=== PATIENT | female | born 1955 | race Caucasian/White ===

== ENCOUNTER 2016-03-05 05:40 | Outpatient (CLI) | payer OTHER ==
[~2016-03-05] VITALS: Ht 170.2 cm; Wt 81.9 kg
[~2016-03-05 05:40] MED LIST: ACHD5005 PO; ALBU8.5H2 IH; ALLO100T PO; BACL10TA PO; BUDE6HFA IH; CYAN100053 IJ; D50KC PO; EPIN0.3P3 IM; FAMO20TA5 PO; FERR240T9 PO; HYDR1TAB86 PO; LEVO125T6 PO; LEVO1CAP3 PO; LEVO5TAB12 PO; LISI1TAB PO; LISI1TAB10 PO; MAGN400T6 PO; MELO-198 PO; MELO7.5T46 PO; MONT10TA24 PO; MTF500T PO; NF-ESOM40C PO; POTA10CA43 PO; PRD20T PO; ROPI0.256 PO; SITA100T PO; TRAM50TA2 PO
--- OUTSIDE RECORDS SUMMARY | 2016-03-05 05:44 | XMS REPORT | Continuity of Care Document ---
Author Author [facility] Organization [facility] Address Unknown Phone Unavailable Care Team Providers Care Hvac Project Manager Name Role Phone UBALDO WALLS DO PCP Insurance Providers Payer Name Policy Number Subscriber Name Relationship [id number] Kalpana Saldaña E 01 Advance Directives Directive Response Recorded Date/Time Advance Directives No 07/22/15 5:13am Problems Active Problems Medical Problem Onset Date Status Angioedema of lips Unknown Acute Angioedema of lips Unknown Acute Left arm pain Unknown Acute Paresthesia Unknown Acute Renal insufficiency Unknown Acute Syncope Unknown Acute Medications Current Home Medications Medication Dose Units Route Directions Days/Qty Instructions Start Date Levothyroxine Sodium (Levothroid) 125 Mcg 125 Mcg Oral Daily Budesonide/Formoterol Fumarate 10.2 Gm 2 Puff Inhalation Twice A Day 05/27/13 Albuterol 8.5 Gm 2 Puff Inhalation Every 4HRS as needed for Shortness Of Breath NEEDED FOR SHORTNESS OF BREATH 05/27/13 Levocetirizine Dihydrochloride 5 Mg 5 Mg Oral Daily 05/28/13 Ergocalciferol 50,000 Units 50,000 Units Oral Weekly takes on 05/28/13 Cyanocobalamin (Vitamin B 12 Injecting) 1,000 Mcg/Ml 1,000 Mcg Injection Monthly 05/28/13 Allopurinol 100 Mg 100 Mg Oral Bedtime 05/28/13 Hctz/Lisinopril (Zestoretic) 1 Tab 1 Tab Oral Bedtime 20-25MG TABLET 05/28/13 Sitagliptin Phosphate 100 Mg 100 Mg Oral Bedtime 01/18/14 Metformin Hcl (Glucophage) 500 Mg 250 Mg Oral Twice A Day With Meals 01/18/14 Esomeprazole Magnesium 40 Mg 40 Mg Oral Bedtime 01/18/14 Potassium Chloride (Micro K) 10 Meq 10 Meq Oral Bedtime 01/18/14 Ferrous Gluconate 1 Tab 1 Tab Oral Bedtime 01/18/14 Magnesium Oxide 400 Mg 400 Mg Oral Bedtime 01/18/14 Levomefolate/B6/B12/Algal Oil 1 Each 1 Each Oral Bedtime 01/18/14 Ropinirole Hcl 0.25 Mg 0.5 Mg Oral Bedtime TAKE 2 (.25MG) TABS Epinephrine 0.3 Mg/0.3 Ml 0.3 Mg Intramusc As Directed as needed for Shortness Of Breath 2 02/01/14 Montelukast Sodium 10 Mg 90 07/22/15 Meloxicam 7.5 Mg 90 07/22/15 Past Home Medications Medication Directions Ordered Status Meloxicam (Mobic) 7.5 Mg Tablet, 7.5 Mg Oral Daily 05/27/13 Discontinued Hctz/Lisinopril (Zestoretic) 1 Each Tablet, 1 Tab Oral Bedtime 05/27/13 Discontinued Acetaminophen/Hydrocodone Bitart (Lortab) 1 Each Tablet, 1-2 Each Oral Every 4HRS as needed for Pain 05/28/13 Discontinued Meloxicam (Mobic) 7.5 Mg Tablet, 7.5 Mg Oral Daily 01/18/14 Discontinued Acetaminophen/Hydrocodone Bitart (Hydrocodone/Apap 5/325MG) 1 Tab Tab, 1-2 Tab Oral Every 4HRS as needed for Moderate To Severe Pain 02/01/14 Discontinued Baclofen (Lioresal) 10 Mg Tablet, 10 Mg Oral Three Times A Day And Prn as needed for Spasms 02/01/14 Discontinued Prednisone 20 Mg Tab, 40 Mg Oral Daily 02/01/14 Discontinued Famotidine (Pepcid) 20 Mg Tablet, 1 Each Oral Twice A Day 02/01/14 Discontinued Tramadol Hcl 50 Mg Tablet, 50 Mg Oral Every 4HRS as needed for Pain 02/01/14 Discontinued Social History Social History Problem Response Recorded Date/Time Alcohol Use Occasionally Uses 07/22/2015 5:13am Recreational Drug Use No 07/22/2015 5:13am Recent Foreign Travel No 07/20/2015 7:48am Sexually Transmitted Disease No 07/22/2015 5:13am HIV/AIDS No 07/22/2015 5:13am Sexually Transmitted Disease No 07/22/2015 5:13am Hospital Discharge Instructions No hospital discharge instructions. Plan of Care Prescriptions See Medication Section Functional Status No functional status results. Allergies, Adverse Reactions, Alerts Allergen Type Severity Reaction Status Last Updated Codeine Allergy Unknown Active 11/27/14 Meperidine Allergy Unknown Active 05/27/13 Immunizations No immunization records. Vital Signs No known vital signs results. Results No known relevant diagnostic tests, laboratory data and/or discharge summary. Procedures No known history of procedures. Encounters Encounter Location Arrival/Admit Date Discharge/Depart Date Attending Provider Discharged Recurring [facility] 08/25/15 8:00am 9:33am KAREN WALLS
[2016-03-05] MEDS ORDERED: LOVA20TA2 PO (13:16)
[2016-03-05] MEDS ORDERED: FLUT1DIS26 IH (13:16)
[2016-03-05] MEDS ORDERED: CALC1TAB4 PO (13:16)
== END 2016-03-05 13:17 ==
LOC: PREOP 05:40
PROVIDERS: ATTEND Surgery
DX: Z01.818 Encounter for other preprocedural examination (principal); K21.9 Gastro-esophageal reflux disease without esophagitis

== ENCOUNTER 2016-03-07 07:21 | Day surgery (SDC) | payer OTHER ==
[~2016-03-07] VITALS: Ht 170.2 cm; Wt 81.9 kg
[~2016-03-07 07:21] MED LIST changes: +CALC1TAB4 PO; +FLUT1DIS26 IH; +LOVA20TA2 PO
--- OUTSIDE RECORDS SUMMARY | 2016-03-07 07:25 | XMS REPORT | Continuity of Care Document ---
Author Author [facility] Organization [facility] Address Unknown Phone Unavailable Care Team Providers Care Pediatric Physical Therapy Assistant Name Role Phone UBALDO WALLS DO PCP Insurance Providers Payer Name Policy Number Subscriber Name Relationship [id number] Kalpana Saldaña E 01 Advance Directives Directive [...] Discharge/Depart Date Attending Provider Discharged Recurring [facility] 08/25/15 8:00am 9:33am KAREN WALLS
--- OUTSIDE RECORDS SUMMARY | 2016-03-07 07:26 | XMS REPORT | Continuity of Care Document ---
Author Author [facility] Organization [facility] Address Unknown Phone Unavailable Care Team Providers Care Export Specialist Name Role Phone UBALDO WALLS DO PCP Insurance Providers Payer Name Policy Number Subscriber Name Relationship [id number] Kalpana Saldaña E 01 Advance Directives Directive [...] Discharge/Depart Date Attending Provider Discharged Recurring [facility] 08/25/15 8:00am 9:33am KAREN WALLS
[2016-03-07] MEDS ORDERED: FLUMAZENIL (ROMAZICON) 0.1 MG/ML 5 ML VIAL INJ PRN (07:30)
[2016-03-07] MEDS ORDERED: NS IV 500 ML 500 ML IV PRN (07:30)
[2016-03-07] MEDS ORDERED: HURRICAINE EXT TUBE (BENZOCAINE) XX PRN (07:30)
[2016-03-07] MEDS ORDERED: NALOXONE 0.4 MG/ML 1 ML (NARCAN) VIAL IVP PRN (07:30)
[2016-03-07] MEDS ORDERED: LIDOCAINE JELLY 2% (XYLOCAINE) 5 ML TUBE MM PRN (07:30)
[2016-03-07] MEDS ORDERED: NS IV 500 ML 500 ML ONE (07:32)
[2016-03-07 07:45] VITALS: BP 121/63
[2016-03-07] MEDS ORDERED: fentaNYL INJECTION 100 MCG/2 ML AMP ONE (07:54)
[2016-03-07] MEDS ORDERED: MIDAZOLAM 2 MG/2 ML (VERSED) VIAL ONE ×3 (07:54→07:55)
[2016-03-07] MEDS ORDERED: HURRICAINE EXT TUBE (BENZOCAINE) ONE (07:55)
--- NOTE | 2016-03-07 08:22 | Pre-Op Note & Conscious Sedat ---
Pre-Operative Progress Note H&P Reviewed The H&P was reviewed, patient examined and no changes noted. Date H&P Reviewed: Mar 07, 2016 Time H&P Reviewed: 08:21 Pre-Op Diagnosis: GERD Conscious Sedation Pre-Proced ASA Class: 2 Airway Mallampati Classification: ([place] appropriate class) I. II. III, IV Lungs Heart ASA score ASA 1: a normal healthy patient ASA 2: a patient with a mild systemic disease (mid diabetes, controlled hypertension, obesity ASA 3: a patient with a severe systemic disease that limits activity (angina , COPD, prior Myocardial infarction) ASA 4: a patient with an incapacitating disease that is a constant threat to life (CHF, renal failure) ASA 5: a moribund patient not expected to survive 24 hrs. (ruptured aneurysm) ASA 6: a declared brain patient whose organs are being harvested. For emergent operations, add the letter E after the classification Grade 2 Sedation Plan: Discussed options with patient/fam Note The patient is an appropriate candidate to undergo the planned procedure, sedation, and anesthesia. The patient immediately re-assessed prior to indication. LUCAS ESTES MD Mar 07, 2016 8:22 am
[2016-03-07] MEDS: fentaNYL INJECTION 100 MCG/2 ML AMP IVP PRN ×2 (08:27→08:29)
[2016-03-07] MEDS: MIDAZOLAM 2 MG/2 ML (VERSED) VIAL IVP PRN ×2 (08:28→08:30)
[2016-03-07 09:05] VITALS: BP 117/52
--- NOTE | 2016-03-07 09:07 | Progress Note-Post Operative ---
Post-Operative Progess Note Pre-Operative Diagnosis GERD Post-Operative Diagnosis tortuous esophagus with a large paraesophageal hernia. Stomach and duodenum normal Post-Op Procedure Note Date of Procedure: Mar 07, 2016 Name of Procedure: EGD with antral biopsy Anesthesia Type sedation Specimen(s) collected antral mucosa LUCAS ESTES MD Mar 07, 2016 9:07 am
--- NOTE | 2016-03-07 09:10 | Discharge Inst-Simple/Standard ---
Discharge Inst-Standard Discharge Medications New, Converted or Re-Newed RX: Other Patient Instructions/Follow Up Plan of Care/Instructions/FU: please schedule CT of the chest and abdomen with IV and oral contrast as an outpatient Activity as Tolerated: Yes Discharge Diet: No Restrictions, ADA Diet LUCAS ESTES MD Mar 07, 2016 9:10 am
[2016-03-07 09:35] VITALS: BP 111/66
[2016-03-07 10:00] VITALS: BP 111/66
--- NOTE | 2016-03-08 07:51 | PROCEDURE REPORT ---
PROCEDURE PHYSICIAN: LUCAS ESTES DATE OF PROCEDURE: 03/07/2016 PROCEDURE: Upper GI endoscopy with antral biopsy. SURGEON: Ezekiel. INDICATION FOR THE PROCEDURE: This lady came in for endoscopic assessment of symptoms of severe reflux disease. She reports ongoing symptoms with early aspiration despite proton pump inhibitor therapy. Informed consent was obtained after reviewing the procedure in detail. DESCRIPTION OF PROCEDURE: She was placed in the left lateral decubitus position and her vital signs were monitored. Conscious sedation was achieved using Versed and fentanyl. Her oropharynx was anesthetized with Cetacaine and the flexible gastroscope introduced down the esophagus, past the stomach, into the proximal duodenum. FINDINGS: ESOPHAGUS: Quite tortuous with a large hiatal hernia, having the appearance of a para-esophageal type of hernia. There was minimal esophagitis. STOMACH AND DUODENUM: Stomach and duodenum were normal. An antral biopsy was obtained for Helicobacter status. She tolerated the procedure well and was taken back to the nursing area in a stable condition. IMPRESSION: Persistent symptoms of reflux. Possible paraesophageal hernia requiring surgical correction. Would obtain esophageal manometry and a CT scan for further evaluation. Job ID: [id number] Dictated Date: 03/07/2016 08:47:05 Lease Picker Date: 03/08/2016 07:46:21 / dwight
== END 2016-03-07 10:00 | disposition home or self-care (01) ==
LOC: ENDO 07:21
PROVIDERS: ATTEND Surgery
DX: K21.9 Gastro-esophageal reflux disease without esophagitis (principal); K44.9 Diaphragmatic hernia without obstruction or gangrene; K20.9 Esophagitis, unspecified; E11.9 Type 2 diabetes mellitus without complications; Z79.84 Long term (current) use of oral hypoglycemic drugs
CPT/HCPCS: 82962

== ENCOUNTER → 2016-03-08 | Outpatient (CLI) | payer OTHER ==
[~2016-03-08] MED LIST changes: +BARIUM SUSPENSION 2.1% (VANILLA SILQ) 450 ML PO ONE; +CATHETER FLUSH 10 ML SYR IV PRN; +IOHEXOL 350 MG/ML 100 ML (OMNIPAQUE 350) VIAL IV ONE; +NS 100 ML (IVPB) BAG IV ONE
--- OUTSIDE RECORDS SUMMARY | 2016-03-08 07:22 | XMS REPORT | Continuity of Care Document ---
Author Author [facility] Organization [facility] Address Unknown Phone Unavailable Care Team Providers Care Hydrography Teacher Name Role Phone UBALDO WALLS DO PCP Insurance Providers Payer Name Policy Number Subscriber Name Relationship [id number] Kalpana Saldaña E 01 Advance Directives Directive [...] Discharge/Depart Date Attending Provider Discharged Recurring [facility] 08/25/15 8:00am 9:33am KAREN WALLS
[2016-03-08 07:51] LABS: CREATININE SERUM 1.16 MG/DL (0.60-1.30)
--- NOTE | 2016-03-08 10:07 | Diagnostic Imaging Report ---
PROCEDURE: CT chest and abdomen with contrast. TECHNIQUE: Multiple contiguous axial images were obtained through the chest and abdomen after the administration of intravenous contrast. INDICATION: Paraesophageal hernia. COMPARISON: The previous CT chest exam of 11/27/2014 suggested a large hiatal hernia. FINDINGS: On the coronal images of this exam however, it appears that there is a paraesophageal hernia. As on the previous study, much of the stomach lies above the diaphragm. The lungs are generally clear. A few thin strands of atelectasis/fibrosis have developed in the left lower lobe since the prior study. The calcified granuloma in the left lung base seen previously is again evident and no different. The heart size is within normal limits. The aorta is not abnormally dilated and there is no sign of a dissection. There is no defect within the pulmonary arteries to indicate a pulmonary embolus. There is no mediastinal or hilar adenopathy. The thyroid gland was not well visualized. There is no obvious breast mass. The images through the abdomen show that the liver is of lower density than usually seen. This does suggest fatty metamorphosis. This finding is similar to the prior exam. The spleen, pancreas, adrenals, aorta and inferior vena cava are unremarkable for an acute abnormality. As noted on the prior study, the gallbladder is surgically absent. The bone windows show no sign of a fracture or for destructive lesion. IMPRESSION: 1. The large paraesophageal hernia seen on the previous study is again evident and does not appear to have changed significantly. Much of the stomach does lie above the diaphragm. 2. There is no acute abnormality of the chest or abdomen. A few thin strands of atelectasis/fibrosis have developed in the left lung base since the prior study. These results were discussed with Dr. Falcon. Dictated by: Dictated on workstation # [id number]
== END ==
LOC: RAD 07:17
PROVIDERS: ATTEND Surgery
DX: K44.9 Diaphragmatic hernia without obstruction or gangrene (principal)
CPT/HCPCS: 36415; 71260; 74160; 82565; 84520

== ENCOUNTER → 2017-03-01 | Outpatient (CLI) | payer OTHER ==
[~2017-03-01] MED LIST changes: -BARIUM SUSPENSION 2.1% (VANILLA SILQ) 450 ML PO ONE; -CATHETER FLUSH 10 ML SYR IV PRN; -IOHEXOL 350 MG/ML 100 ML (OMNIPAQUE 350) VIAL IV ONE; -NS 100 ML (IVPB) BAG IV ONE
--- NOTE | 2017-03-01 09:48 | Diagnostic Imaging Report ---
PROCEDURE: MRI lumbar spine. TECHNIQUE: Multiplanar, multisequence MRI of the lumbar spine was performed without contrast. INDICATION: Low back pain. History of prior laminectomy. COMPARISON: 01/13/2015 FINDINGS: There is moderate levoscoliosis of the lumbar spine similar to the prior study. BONE MARROW: Unremarkable CONUS MEDULLARIS: The conus is at about L1 and appears unremarkable. L5-S1: There is degenerative disc space narrowing and loss of signal. There is moderate facet arthropathy. There are small lateral disc protrusions bilaterally resulting in very minimal foraminal narrowing slightly more prominent on the left, similar to the prior study. L4-5: There is mild disc space narrowing and loss of signal. There is broad-based posterior disc protrusion more pronounced on the left where there is an associated small annular tear. There is moderate facet arthropathy. Findings result in some encroachment of the left lateral recess and mild bilateral foraminal narrowing, left more so than right. The overall appearance appears fairly similar to the prior exam. L3-4: There is severe facet arthropathy with minimal grade I degenerative anterolisthesis of L3 on L4. There is degenerative disc disease with disc space narrowing and loss of signal and broad-based posterior disc protrusion. Findings result in some central narrowing as well as moderate left foraminal narrowing, fairly similar to the prior exam. L2-3: There is degenerative disc disease with disc space narrowing and loss of signal and minimal broad-based posterior disc protrusion with central annular tear. There is mild facet arthropathy. There is minimal ventral effacement of the thecal sac and minimal foraminal narrowing bilaterally, similar to the prior study. L1-2: Unremarkable ADDITIONAL FINDINGS: None IMPRESSION: Multilevel degenerative disc disease and facet arthropathy with multiple levels of disc protrusion and some mild central and foraminal narrowing. Foraminal stenosis is most severe on the right at L3/L4. Overall, the appearance of the lumbar spine does not appear significantly changed from the prior exam from 2015. Please see above for detailed discussion by level. Dictated by: Dictated on workstation # [id number]
== END ==
LOC: RAD 08:27
PROVIDERS: ATTEND Internal Medicine
DX: M48.07 Spinal stenosis, lumbosacral region (principal); M51.36 Other intervertebral disc degeneration, lumbar region; M51.27 Other intervertebral disc displacement, lumbosacral region; M46.97 Unspecified inflammatory spondylopathy, lumbosacral region; Z98.890 Other specified postprocedural states
CPT/HCPCS: 72148

== ENCOUNTER 2018-03-09 12:11 | Emergency (ER) | payer OTHER ==
[~2018-03-09] VITALS: Ht 170.2 cm; Wt 83.9 kg
[2018-03-09] MEDS ORDERED: ASPIRIN 81 MG CHEW (CHILDREN'S ASA) PO ONE (12:30)
[2018-03-09 12:34] LABS: BASOPHILS % (AUTO) 1 % (0-10); EOSINOPHILS # (AUTO) 0.2 10^3/uL (0.0-0.3); EOSINOPHILS % (AUTO) 3 % (0-10); HEMATOCRIT 38 % (35-52); HEMOGLOBIN 12.9 G/DL (11.5-16.0); LYMPHOCYTES # (AUTO) 1.9 X 10^3 (1.0-4.0); LYMPHOCYTES % (AUTO) 26 % (12-44); MEAN CORPUSCULAR HEMOGLOBIN 30 PG (25-34); MEAN CORPUSCULAR HGB CONC 34 G/DL (32-36); MEAN CORPUSCULAR VOLUME 90 FL (80-99); MONOCYTES # (AUTO) 0.6 X 10^3 (0.0-1.0); MONOCYTES % (AUTO) 8 % (0-12); NEUTROPHILS # (AUTO) 4.7 X 10^3 (1.8-7.8); NEUTROPHILS % (AUTO) 63 % (42-75); PLATELET COUNT 298 10^3/uL (130-400); RED CELL DISTRIBUTION WIDTH 14.1 % (10.0-14.5); WHITE BLOOD COUNT 7.5 10^3/uL (4.3-11.0)
[2018-03-09] MEDS: NITROGLYCERIN 0.4 MG SL TABS BTL 25'S SL PRN ×2 (12:34→13:10)
--- NOTE | 2018-03-09 12:42 | ED Chest Pain ---
General Chief Complaint: Chest Pain Stated Complaint: CHEST PAIN Source: patient Exam Limitations: no limitations History of Present Illness Date Seen by Provider: Mar 09, 2018 Time Seen by Provider: 12:12 Initial Comments 62-year-old female who presented to the emergency room with chest pain that started around 8:00 this morning while at work. Reports the pain is intermittent substernal chest pain that radiates through to her back into her right shoulder blade. She denies nausea, vomiting, shortness of breath. Reports that she feels like she needs to burp to relieve pressure. Timing/Duration: 4-6 hours Severity/Quality: dull, sharp Location: substernal, central Radiation: shoulders (right shoulder), back ASA po FOREST FIRE MANAGEMENT OFFICER: No NTG SL FOREST FIRE MANAGEMENT OFFICER: No Associated Symptoms: back pain; No fatigue, No headache, No nausea/vomiting, No shortness of breath, No syncope, No weakness Allergies and Home Medications Allergies Coded Allergies: codeine (Verified Allergy, Unknown, 03/07/16) meperidine (Verified Allergy, Unknown, 03/07/16) Home Medications Albuterol 8.5 Gm Hfa.aer.ad, 2 PUFF IH Q4H PRN for SHORTNESS OF BREATH, ( Reported) NEEDED FOR SHORTNESS OF BREATH Allopurinol 100 Mg Tab, 100 MG PO HS, (Reported) Ca/D3/Mag#11/Zinc/Repeater Chief/Deion/Bor 1 Each Tablet, 1 EACH PO DAILY, (Reported) Cyanocobalamin 1,000 Mcg/Ml Vial, 1,000 MCG IJ MONTHLY, (Reported) Ergocalciferol 50,000 Units Cap, 50,000 UNITS PO WEEKLY, (Reported) takes on Esomeprazole Mag Trihydrate 40 Mg Capsule.dr, 40 MG PO HS, (Reported) Ferrous Gluconate 1 Tab Tablet, 1 TAB PO HS, (Reported) Fluticasone/Salmeterol 1 Each Blst.w.dev, 1 EACH IH HS, (Reported) Hctz/Lisinopril 1 Tab Tablet, 1 TAB PO HS, (Reported) 20-25MG TABLET Levocetirizine Dihydrochloride 5 Mg Tablet, 5 MG PO DAILY, (Reported) Levomefolate/B6/B12/Algal Oil 1 Each Capsule, 1 EACH PO HS, (Reported) Levothyroxine Sodium 125 Mcg Tablet, 125 MCG PO DAILY, (Reported) Lovastatin 20 Mg Tablet, 20 MG PO DAILY, (Reported) Magnesium Oxide 400 Mg Tablet, 400 MG PO HS, (Reported) Meloxicam 7.5 Mg Tablet, 7.5 MG PO DAILY, (Reported) Metformin Hcl 500 Mg Tablet, 500 MG PO BID WITH MEALS, (Reported) Montelukast Sodium 10 Mg Tablet, 10 MG PO DAILY, (Reported) Potassium Chloride 10 Meq Capsule.sa, 10 MEQ PO HS, (Reported) Sitagliptin Phosphate 100 Mg Tablet, 100 MG PO HS, (Reported) Past Fbjpqmt-Kfxfgw-Kgyymg Hx Patient Social History Recent Hopitalizations: No Immunizations Up To Date Tetanus Booster (TDap): Unknown Date of Pneumonia Vaccine: Nov 10, 2012 Date of Influenza Vaccine: Dec 01, 2013 Seasonal Allergies Seasonal Allergies: Yes Past Medical History Eye Surgery, Gallbladder, Orthopedic Asthma Currently Using CPAP: No Currently Using BIPAP: No Hypertension Reproductive Disorders: No Female Reproductive Disorders: Denies CATERING 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 Sexually Transmitted Disease: No HIV/AIDS: No Gastroesophageal Reflux, Hiatal Hernia Chronic Back Pain Hyperthyroidism, Diabetes, Non-Insulin dep Loss of Vision: Denies Hearing Impairment: Denies Adverse Reaction/Blood Tranf: No Family Medical History Cancer 03 FATHER, Onset:Unknown (Kidney Cancer) Cataract 03 FATHER, Onset:Unknown Dementia Paternal Grandmother, Onset:Unknown Family history: Asthma 09 SISTER, Onset:Unknown Family history: Cardiovascular disease 03 MOTHER, Onset:Unknown Family history: Diabetes mellitus 03 MOTHER, Onset:Unknown Family history: Gastrointestinal disease 09 SISTER, Onset:Unknown (Celiac disease) Family history: Thyroid disorder 09 SISTER, Onset:Unknown Hearing loss 03 FATHER, Onset:Unknown History of - respiratory disease 03 FATHER, Onset:Unknown (emphysema) Visual impairment 09 SISTER, Onset:Unknown (Macular Degeneration) Heart Disease Physical Exam Vital Signs Capillary Refill : Height, Weight, BMI Height: 5'7.00" Weight: 180lbs. 9.6oz. [id number]; 28.3 BMI Method:Estimated Progress/Results/Core Measures Results/Orders Lab Results Laboratory Tests Test 03/09/18 12:28 03/09/18 15:48 Range/Units White Blood Count 7.5 4.3-11.0 10^3/uL Red Blood Count 4.27 L 4.35-5.85 10^6/uL Hemoglobin 12.9 11.5-16.0 G/DL Hematocrit 38 35-52 % Mean Corpuscular Volume 90 80-99 FL Mean Corpuscular Hemoglobin 30 25-34 PG Mean Corpuscular Hemoglobin Concent 34 32-36 G/DL Red Cell Distribution Width 14.1 10.0-14.5 % Platelet Count 298 130-400 10^3/uL Mean Platelet Volume 11.0 H 7.4-10.4 FL Neutrophils (%) (Auto) 63 42-75 % Lymphocytes (%) (Auto) 26 12-44 % Monocytes (%) (Auto) 8 0-12 % Eosinophils (%) (Auto) 3 0-10 % Basophils (%) (Auto) 1 0-10 % Neutrophils # (Auto) 4.7 1.8-7.8 X 10^3 Lymphocytes # (Auto) 1.9 1.0-4.0 X 10^3 Monocytes # (Auto) 0.6 0.0-1.0 X 10^3 Eosinophils # (Auto) 0.2 0.0-0.3 10^3/uL Basophils # (Auto) 0.0 0.0-0.1 10^3/uL Prothrombin Time 12.3 12.2-14.7 SEC INR Comment 0.9 0.8-1.4 Activated Partial Thromboplast Time 26 24-35 SEC Sodium Level 140 135-145 MMOL/L Potassium Level 3.9 3.6-5.0 MMOL/L Chloride Level 100 98-107 MMOL/L Carbon Dioxide Level 27 21-32 MMOL/L Anion Gap 13 5-14 MMOL/L Blood Urea Nitrogen 14 7-18 MG/DL Creatinine 1.06 0.60-1.30 MG/DL Estimat Glomerular Filtration Rate 52 BUN/Creatinine Ratio 13 Glucose Level 81 70-105 MG/DL Calcium Level 9.5 8.5-10.1 MG/DL Corrected Calcium 9.3 8.5-10.1 MG/DL Magnesium Level 2.1 1.8-2.4 MG/DL Total Bilirubin 0.3 0.1-1.0 MG/DL Aspartate Amino Transf (AST/SGOT) 30 5-34 U/L Alanine Aminotransferase (ALT/SGPT) 31 0-55 U/L Alkaline Phosphatase 96 40-136 U/L Myoglobin 59.9 10.0-92.0 NG/ML Troponin I < 0.028 <0.028 NG/ML Total Protein 7.2 6.4-8.2 GM/DL Albumin 4.2 3.2-4.5 GM/DL My Orders Orders - JAYLEEN BENJAMIN Cbc With Automated Diff (03/09/18 12:16) Magnesium (03/09/18 12:16) Chest 1 View, Ap/Pa Only (03/09/18 12:16) Cardiac Profile 1 (03/09/18 12:16) Comprehensive Metabolic Panel (03/09/18 12:16) Myoglobin Serum (03/09/18 12:16) Protime With Inr (03/09/18 12:16) Partial Thromboplastin Time (03/09/18 12:16) O2 (03/09/18 12:16) Monitor-Rhythm Ecg Trace Only (03/09/18 12:16) Lipid Panel (03/10/18 06:00) Saline Lock/Iv-Start (03/09/18 12:16) Aspirin Chewable Tablet (Baby Aspirin Ch (03/09/18 12:30) Nitroglycerin 0.4 Mg Btl 25's (Nitrostat (03/09/18 12:30) General/Regular (03/09/18 Lunch) Troponin I (03/09/18 15:43) Medications Given in ED Current Medications Medications Dose Ordered Sig/Dulce Route Start Time Stop Time Status Last Admin Dose Admin Aspirin 324 mg ONCE ONCE PO 03/09/18 12:30 03/09/18 12:31 DC 03/09/18 12:33 324 MG Nitroglycerin 1 TAB Q 5 MIN X 3 NEEDED PRN SL 03/09/18 12:30 03/09/18 13:10 0.4 MG Departure Impression Primary Impression: Chest pain Additional Impression: Left against medical advice Disposition: 07 AGAINST MEDICAL ADVICE Condition: Stable/Unchanged Departure-Patient Inst. Decision time for Depature: 15:50 Referrals: Solange CALVO MD, WILLIAM J DO (PCP/Family) Primary Care Physician Patient Instructions: Chest Pain (DC) Add. Discharge Instructions: Call today or first thing tomorrow morning to schedule your outpatient echo and nuclear stress test. Return back to the emergency room for any worsening chest pain, shortness of breath, worsening symptoms, or any other concerns as needed. Follow-up with Dr. Calvo within 1 week for recheck. All discharge instructions reviewed with patient and/or family. Voiced understanding. JAYLEEN BENJAMIN Mar 09, 2018 12:42
--- NOTE | 2018-03-09 12:50 | Diagnostic Imaging Report ---
INDICATION: Chest pain. COMPARISON: 07/22/2015. FINDINGS: Single frontal view of the chest demonstrates normal heart size and pulmonary vascularity. The lungs are well aerated and clear. No large pleural effusion or pneumothorax is seen. The visualized osseous structures show no acute abnormalities. IMPRESSION: 1. No acute cardiopulmonary process. Dictated by: Dictated on workstation # [id number]
[2018-03-09 12:52] LABS: INR 0.9 (0.8-1.4); PROTHROMBIN TIME PATIENT 12.3 SEC (12.2-14.7)
[2018-03-09 12:58] LABS: ALANINE AMINOTRANSFERASE 31 U/L (0-55); ALBUMIN 4.2 GM/DL (3.2-4.5); ALKALINE PHOSPHATASE 96 U/L (40-136); BILIRUBIN,TOTAL 0.3 MG/DL (0.1-1.0); BUN/CREATININE RATIO 13; CALCIUM 9.5 MG/DL (8.5-10.1); CARBON DIOXIDE 27 MMOL/L (21-32); CHLORIDE 100 MMOL/L (98-107); CREATININE SERUM 1.06 MG/DL (0.60-1.30); GFR ESTIMATED 52; GLUCOSE 81 MG/DL (70-105); MAGNESIUM 2.1 MG/DL (1.8-2.4); POTASSIUM 3.9 MMOL/L (3.6-5.0); SODIUM 140 MMOL/L (135-145); TOTAL PROTEIN 7.2 GM/DL (6.4-8.2)
[2018-03-09 13:04] LABS: MYOGLOBIN SERUM 59.9 NG/ML (10.0-92.0)
--- NOTE | 2018-03-09 14:49 | Consultation-Cardiology ---
HPI-Cardiology Cardiology Consultation: Date of Consultation 03/09/18 Date of Admission Attending Physician Admitting Physician Jaswinder Hamilton DO Consulting Physician Solange CALVO MD HPI: Time Seen by a Provider: 15:04 Chief Complaint: Chest pain This is a 62-year-old female with no past history of any cardiac workup. She has history of diabetes, hypertension, hyperlipidemia. She denies smoking. She does have family history of CAD. She presented to the ER with complains of chest pain since 8 o'clock this morning. The chest pain was intermittent, substernal which radiates to the back. She rates it as mild to moderate discomfort. No exacerbating or relieving factors. Second nitroglycerin eased up the pain significantly. She denies any other associated symptoms. Review of Systems-Cardiology Review of Systems Constitutional: As described under HPI; No As described under HPI, No no symptoms reported, No chills, No fever, No lightheadedness Eyes: No As described under HPI, No no symptoms reported, No blindness, No blurred vision, No contact lenses, No drainage, No decreased acuity, No foreign body sensation, No pain, No vision change Ears/Nose/Throat: No As described under HPI, No no symptoms reported, No chronic hearing loss, No ear discharge, No ear pain, No nasal drainage, No ulcerations Respiratory: No no symptoms reported; As described under HPI; No As described under HPI, No cough, No orthopnea, No shortness of breath, No SOB with excertion Cardiovascular: No no symptoms reported; As described under HPI; No As described under HPI; chest pain; No edema, No irregular heart rate, No lightheadedness, No palpitations Gastrointestinal: No no symptoms reported, No As described under HPI, No abdomen distended, No abdominal pain, No blood streaked bowels, No constipation , No diarrhea, No nausea, No vomiting, No stool coloration changes Genitourinary: No As described under HPI, No burning, No dysuria, No discharge , No frequency, No flank pain, No hematuria, No urgency : Yes : No Musculoskeletal: No no symptoms reported, No As describe under HPI, No back pain, No gout, No joint pain, No joint swelling, No muscle pain, No muscle stiffness, No neck pain, No other Skin: No no symptoms reported, No As described under HPI, No change in color, No change in hair/nails, No dryness, No lesions, No lumps, No rash, No other, No skin related problems, No ulcerations, No rash on exposed areas, No ulcerations on exposed areas Psychiatric/Neurological: No anxiety, No depression, No seizure, No focal weakness, No syncope Hematologic: No bleeding abnormalities XXN-[id number]-Fhaiic Hx Immunizations Up To Date Tetanus Booster (TDap): Unknown Date of Pneumonia Vaccine: Nov 10, 2012 Date of Influenza Vaccine: Dec 01, 2013 Past Medical History PMH As described under Assessment. Family Medical History Family History: Cancer 03 FATHER, Onset:Unknown (Kidney Cancer) Cataract 03 FATHER, Onset:Unknown Dementia Paternal Grandmother, Onset:Unknown Family history: Asthma 09 SISTER, Onset:Unknown Family history: Cardiovascular disease 03 MOTHER, Onset:Unknown Family history: Diabetes mellitus 03 MOTHER, Onset:Unknown Family history: Gastrointestinal disease 09 SISTER, Onset:Unknown (Celiac disease) Family history: Thyroid disorder 09 SISTER, Onset:Unknown Hearing loss 03 FATHER, Onset:Unknown History of - respiratory disease 03 FATHER, Onset:Unknown (emphysema) Visual impairment 09 SISTER, Onset:Unknown (Macular Degeneration) Allergies and Home Medications Allergies Coded Allergies: codeine (Verified Allergy, Unknown, 03/07/16) meperidine (Verified Allergy, Unknown, 03/07/16) Home Medications Albuterol 8.5 Gm Hfa.aer.ad, 2 PUFF IH Q4H PRN for SHORTNESS OF BREATH, ( Reported) NEEDED FOR SHORTNESS OF BREATH Allopurinol 100 Mg Tab, 100 MG PO HS, (Reported) Ca/D3/Mag#11/Zinc/Container Maker/Deion/Bor 1 Each Tablet, 1 EACH PO DAILY, (Reported) Cyanocobalamin 1,000 Mcg/Ml Vial, 1,000 MCG IJ MONTHLY, (Reported) Ergocalciferol 50,000 Units Cap, 50,000 UNITS PO WEEKLY, (Reported) takes on Esomeprazole Mag Trihydrate 40 Mg Capsule.dr, 40 MG PO HS, (Reported) Ferrous Gluconate 1 Tab Tablet, 1 TAB PO HS, (Reported) Fluticasone/Salmeterol 1 Each Blst.w.dev, 1 EACH IH HS, (Reported) Hctz/Lisinopril 1 Tab Tablet, 1 TAB PO HS, (Reported) 20-25MG TABLET Levocetirizine Dihydrochloride 5 Mg Tablet, 5 MG PO DAILY, (Reported) Levomefolate/B6/B12/Algal Oil 1 Each Capsule, 1 EACH PO HS, (Reported) Levothyroxine Sodium 125 Mcg Tablet, 125 MCG PO DAILY, (Reported) Lovastatin 20 Mg Tablet, 20 MG PO DAILY, (Reported) Magnesium Oxide 400 Mg Tablet, 400 MG PO HS, (Reported) Meloxicam 7.5 Mg Tablet, 7.5 MG PO DAILY, (Reported) Metformin Hcl 500 Mg Tablet, 500 MG PO BID WITH MEALS, (Reported) Montelukast Sodium 10 Mg Tablet, 10 MG PO DAILY, (Reported) Potassium Chloride 10 Meq Capsule.sa, 10 MEQ PO HS, (Reported) Sitagliptin Phosphate 100 Mg Tablet, 100 MG PO HS, (Reported) Patient Home Medication List Home Medication List Reviewed: Yes Physical Exam-Cardiology Physical Exam Vital Signs/I&O Capillary Refill : Constitutional: appears stated age, AAO x 3; No apparent distress; well- developed, well-nourished HEENT: PERRL; No normal ENT inspection, No TMs normal, No pharynx normal, No scleral icterus (R), No scleral icterus (L), No pale conjunctivae (R), No pale conjunctivae (L), No photophobia, No TM abnormal (R), No TM abnormal (L), No pharyngeal erythema, No tonsillar exudate, No other, No discharge, No EOMI; hearing is well preserved; No hard of hearing; oral hygience is good; No ulceration, No xanthelasmas are seen Neck: No non-tender, No full range of motion, No supple, No normal inspection, No carotid bruit, No limited range of motion, No lymphadenopathy (R), No lymphadenopathy (L), No tender lateral, No tender midline, No thyromegaly, No other; carotid pulses are 2 + bilaterally; No with good upstrokes Respiratory: No accessory muscle use, No respiratory distress, No chest tender , No chest expansion is symmetric; chest is bilaterally symmetric; No lungs clear to percussion; lungs clear to auscultation; No crackles, No rhonchi, No rales, No stridor, No wheezing, No pleural rub, No other Cardiovascular: regular rate-rhythm; No irregularly irregular, No extra beats, No parasternal heave is noted, No JVD, No edema, No bradycardia, No tachycardia , No point of maximal impulse, No cardiac thrills are palpable; S1 and S2; No gallop/S3, No gallop/S4, No diastolic murmur, No systolic murmur, No friction rub, No click, No other Gastrointestinal: No tender, No soft, No round, No distended, No pulsatile mass , No organomegaly, No guarding, No rebound, No tenderness, No hernia, No mass, No audible bowel sounds, No abnormal bowel sounds, No abdominal bruits, No spleenomegaly, No other Rectal: deferred Extremities: No normal range of motion, No non-tender, No normal inspection, No pedal edema, No calf tenderness, No normal capillary refill, No pelvis stable , No calf tenderness, No inflammation, No pedal edema, No slow capillary refill , No swelling, No other, No abrasion, No clubbing, No cyanosis, No ecchymosis, No laceration, No no lower extremity edema bilateral, No significant edema, No tenderness, No wound Neurologic/Psychiatric: no motor/sensory deficits, alert, normal mood/affect, oriented x 3, power is 5/5 both on sides Skin: No normal color, No warm/dry, No cyanosis, No cool, No diaphoresis, No damp, No ecchymosis, No jaundice, No mottled, No pallor, No rash, No tattoos/ piercings, No ulcerations, No rash on exposed areas, No ulcerations on exposed areas, No other Data Review Labs Laboratory Tests 03/09/18 12:28: White Blood Count 7.5, Red Blood Count 4.27L, Hemoglobin 12.9, Hematocrit 38, Mean Corpuscular Volume 90, Mean Corpuscular Hemoglobin 30, Mean Corpuscular Hemoglobin Concent 34, Red Cell Distribution Width 14.1, Platelet Count 298, Mean Platelet Volume 11.0H, Neutrophils (%) (Auto) 63, Lymphocytes (%) (Auto) 26 , Monocytes (%) (Auto) 8, Eosinophils (%) (Auto) 3, Basophils (%) (Auto) 1, Neutrophils # (Auto) 4.7, Lymphocytes # (Auto) 1.9, Monocytes # (Auto) 0.6, Eosinophils # (Auto) 0.2, Basophils # (Auto) 0.0, Prothrombin Time 12.3, INR Comment 0.9, Activated Partial Thromboplast Time 26, Sodium Level 140, Potassium Level 3.9, Chloride Level 100, Carbon Dioxide Level 27, Anion Gap 13, Blood Urea Nitrogen 14, Creatinine 1.06, Estimat Glomerular Filtration Rate 52, BUN/Creatinine Ratio 13, Glucose Level 81, Calcium Level 9.5, Corrected Calcium 9.3, Magnesium Level 2.1, Total Bilirubin 0.3, Aspartate Amino Transf (AST/SGOT ) 30, Alanine Aminotransferase (ALT/SGPT) 31, Alkaline Phosphatase 96, Myoglobin 59.9, Troponin I < 0.028, Total Protein 7.2, Albumin 4.2 ECG Impression ECG Initial ECG Rhythm: Normal Sinus Initial ECG Impression: Normal A/P-Cardiology Assessment/Admission Diagnosis Chest pain, Diabetes, Hypertension, Hyperlipidemia Plan Chest pain, first EKG is negative. First troponin is negative. I recommended an overnight admission for ACS ruled out with echocardiogram and stress test in the morning however the patient refused. I did educate her to return to the ER immediately if she has any further chest pain. We will do an ER to rule out with 3 hour troponin test. I will arrange for early echocardiogram and Lexiscan nuclear stress test. I recommend she takes baby aspirin every day. She has history of diabetes therefore I recommended that she continues to take her statin as well. Diabetes, continue current therapy. I recommended that the patient takes aspirin and statin as well. Hypertension, continue current medical therapy. Hyperlipidemia, continue lovastatin. I gave the patient my office contact information. I also signed outpatient request for echocardiogram and Lexiscan nuclear stress test. We will attempt to do it in the next few days. Thank you for your consultation. Please call me if you have any questions. Skye Calvo MD, FACP, FACC, FSCAI, FHRS, CCDS Interventional Cardiology Cardiac Electrophysiology Vascular Medicine and Endovascular Interventions Clinical Quality Measures AMI/AHF: ASA po Prior to arrival: Solange Martin MD Mar 09, 2018 14:49
[2018-03-09 16:51] VITALS: BP 141/81
== END 2018-03-09 16:51 | disposition left against medical advice (07) ==
LOC: EDUNIT# 12:11 → ER 12:12
DX: R07.81 Pleurodynia (principal); J45.909 Unspecified asthma, uncomplicated; I10 Essential (primary) hypertension; K21.9 Gastro-esophageal reflux disease without esophagitis; E05.90 Thyrotoxicosis, unspecified without thyrotoxic crisis or storm; E11.9 Type 2 diabetes mellitus without complications; Z98.890 Other specified postprocedural states; Z80.51 Family history of malignant neoplasm of kidney; Z82.49 Family history of ischemic heart disease and other diseases of the circulatory system; Z88.5 Allergy status to narcotic agent; Z88.8 Allergy status to other drugs, medicaments and biological substances; Z79.51 Long term (current) use of inhaled steroids; Z79.84 Long term (current) use of oral hypoglycemic drugs
CPT/HCPCS: 36415; 71045; 80053; 83735; 83874; 84484; 85025; 85610; 85730; 93041

== ENCOUNTER → 2018-04-16 | Outpatient (CLI) | payer OTHER ==
[~2018-04-16] VITALS: Ht 170.2 cm; Wt 83.9 kg
[~2018-04-16] MED LIST changes: +CATHETER FLUSH 10 ML SYR IV PRN; +REGADENOSON 0.4 MG/5 ML SYR (LEXISCAN) IV ONE
[2018-04-16 09:25] VITALS: BP 137/79
[2018-04-16 09:33] VITALS: BP 157/76
[2018-04-16 09:37] VITALS: BP 84/56
== END ==
LOC: CARD 07:40
PROVIDERS: ATTEND Internal Medicine Interventional Cardiology
DX: R07.9 Chest pain, unspecified (principal)
CPT/HCPCS: 78452; 93017; 93306

== ENCOUNTER → 2019-09-14 | Outpatient (CLI) | payer MEDICARE, OTHER ==
[~2019-09-14] MED LIST changes: -CATHETER FLUSH 10 ML SYR IV PRN; -MONT10TA24 PO; +MONT10TA26 PO; -REGADENOSON 0.4 MG/5 ML SYR (LEXISCAN) IV ONE
--- NOTE | 2019-09-14 12:58 | Diagnostic Imaging Report ---
INDICATION: Routine screening. Comparison is made with prior mammogram from 12/21/2014 and 07/22/2013. 2-D and 3-D bilateral screening mammography was performed with CAD. Scattered fibroglandular densities are identified bilaterally. No spiculated mass or malignant appearing microcalcifications are identified. Axillae are unremarkable. IMPRESSION: BI-RADS Category 1 No mammographic features suspicious for malignancy are identified. ACR BI-RADS Category 1: Negative. Result letter will be mailed to the patient. Note: At least 10% of breast cancer is not imaged by mammography. Dictated by: Dictated on workstation # [id number]
== END ==
LOC: RAD 09:44
PROVIDERS: ATTEND Nurse Practitioner Family
DX: Z12.31 Encounter for screening mammogram for malignant neoplasm of breast (principal)
CPT/HCPCS: 77063; 77067

== ENCOUNTER 2019-10-06 06:06 | Outpatient (CLI) | payer MEDICARE, OTHER ==
[~2019-10-06] VITALS: Ht 170 cm; Wt 86.3 kg
[2019-10-07] MEDS ORDERED: METF-397 PO (09:43)
[2019-10-07] MEDS ORDERED: LISI1TAB26 PO (09:43)
[2019-10-07] MEDS ORDERED: LEVO5TAB12 PO (09:43)
[2019-10-07] MEDS ORDERED: LEVO125T6 PO (09:43)
[2019-10-07] MEDS ORDERED: ALLO100T PO (09:43)
[2019-10-07] MEDS ORDERED: VITA1CAP PO (09:43)
[2019-10-07] MEDS ORDERED: POTA10CA43 PO (09:43)
[2019-10-07] MEDS ORDERED: RT-ALBUINH IH (09:43)
[2019-10-07] MEDS ORDERED: FERR325T17 PO (09:43)
[2019-10-07] MEDS ORDERED: LIRA0.6P SQ (09:43)
[2019-10-07] MEDS ORDERED: CHOL500049 PO (09:43)
[2019-10-07] MEDS ORDERED: MAGN400T50 PO (09:43)
== END 2019-10-07 09:52 | disposition home or self-care (01) ==
LOC: PREOP 06:06
PROVIDERS: ATTEND Specialist
DX: Z01.818 Encounter for other preprocedural examination (principal)

== ENCOUNTER 2019-10-08 07:36 | Day surgery (SDC) | payer MEDICARE, OTHER ==
[~2019-10-08] VITALS: Ht 170 cm; Wt 86.3 kg
[~2019-10-08 07:36] MED LIST changes: +CHOL500049 PO; +FERR325T17 PO; +LIRA0.6P SQ; +LISI1TAB26 PO; +MAGN400T50 PO; +METF-397 PO; +RT-ALBUINH IH; +VITA1CAP PO
[2019-10-08] MEDS ORDERED: LIDOCAINE PF 1% 2 ML VIAL IR PRN (07:45)
[2019-10-08] MEDS ORDERED: MOXIFLOXACIN OPHTH SOLN 5 MG/ML 0.3 ML SYRINGE OP ONE (07:45)
[2019-10-08] MEDS ORDERED: POVIDONE (BETADINE) OPHTH SOLN 5% 30 ML OP ONE (07:45)
[2019-10-08] MEDS ORDERED: TIMOLOL MALEATE 0.5% 5 ML (TIMOPTIC) BTL OU PRN (07:45)
[2019-10-08 07:50] VITALS: BP 128/72
[2019-10-08] MEDS: TETRACAINE 0.5% OPHTH SOLN 4 ML BTL (SINGLE DOSE ONLY) OU PRN ×4 (07:50→08:08)
[2019-10-08] MEDS: PHENYLEPHRINE 10% OPHTH (NEO-SYN) 5 ML BTL OU SCH ×3 (07:56→08:08)
[2019-10-08] MEDS: CYCLOPENTOLATE 1% (CYCLOGYL) 2 ML DROPS OP SCH ×3 (07:57→08:08)
[2019-10-08] MEDS ORDERED: MIDAZOLAM 2 MG/2 ML (VERSED) VIAL ONE (08:43)
--- NOTE | 2019-10-08 08:45 | Ophthalmologist Pre-Op Note ---
Pre-Operative Progress Note H&P Reviewed The H&P was reviewed, patient examined and no changes noted. Date H&P Reviewed: Oct 08, 2019 Time H&P Reviewed: 08:45 Pre-Op Dx Cataract, Right Eye MADDY WHIPPLE MD Oct 08, 2019 08:45
[2019-10-08] MEDS ORDERED: acetaZOLAMIDE ER 500 MG CAP (DIAMOX SEQUELS) PO ONE (09:00)
--- NOTE | 2019-10-08 09:08 | Ophthalmology Operative Report ---
Cataract removal/placement IOL PREOPERATIVE DIAGNOSIS: Cataract Right Eye POSTOPERATIVE DIAGNOSIS: Cataract Right Eye PROCEDURE: Cataract removal and placement of posterior chamber implant, right eye SURGEON: Salvador Whipple ANESTHESIA: Topical with sedation COMPLICATIONS: None ESTIMATED BLOOD LOSS: Minimal DESCRIPTION OF PROCEDURE: After proper informed consent was obtained, the patient, a 64 female, was taken to the Operating Room and the right eye was anesthetized with tetracaine. The right eye was then prepped and draped in the usual manner. A wire lid speculum was placed. A paracentesis was made at the left hand position. Preservative free lidocaine was injected into the anterior chamber followed by viscoelastic. A clear corneal incision was made in the temporal position. A capsulorrhexis was preformed and the central nuclear and cortical material were removed. The posterior capsule was polished and Jorden 23.5 AU00T0 IOL was placed into the capsular bag. The residual viscoelastic was aspirated and balanced saline solution was injected into the anterior chamber. Moxifloxacin was injected into the anterior chamber. The wound was checked and found to be water tight. The patient tolerated the procedure well without complications. SALVADOR WHIPPLE MD Oct 08, 2019 09:08
[2019-10-08 09:15] VITALS: BP 128/72
--- NOTE | 2019-10-08 14:25 | Anesthesia-General Post-Op ---
MAC Patient Condition Mental Status/LOC: Same as Preop Cardiovascular: Satisfactory Nausea/Vomiting: Absent Respiratory: Satisfactory Pain: Controlled Complications: Absent Post Op Complications Complications None Follow Up Care/Instructions Patient Instructions None needed. Anesthesiology Discharge Order Discharge Order Patient was seen this morning after the procedure and she was doing well, no complaints, stable vital signs, no apparent adverse anesthesia problems. RICHARDSON BOOTHE DO Oct 08, 2019 14:25
== END 2019-10-08 09:15 | disposition home or self-care (01) ==
LOC: SDC 07:36
PROVIDERS: ATTEND Specialist
DX: H25.11 Age-related nuclear cataract, right eye (principal); I10 Essential (primary) hypertension; K21.9 Gastro-esophageal reflux disease without esophagitis; J45.909 Unspecified asthma, uncomplicated; E11.36 Type 2 diabetes mellitus with diabetic cataract; M06.9 Rheumatoid arthritis, unspecified; E78.00 Pure hypercholesterolemia, unspecified; M19.90 Unspecified osteoarthritis, unspecified site; E05.00 Thyrotoxicosis with diffuse goiter without thyrotoxic crisis or storm; Z79.51 Long term (current) use of inhaled steroids; Z79.899 Other long term (current) drug therapy; Z88.5 Allergy status to narcotic agent; Z88.8 Allergy status to other drugs, medicaments and biological substances; Z80.51 Family history of malignant neoplasm of kidney
CPT/HCPCS: 66984; 82962; V2632

== ENCOUNTER 2019-10-29 06:30 | Day surgery (SDC) | payer MEDICARE, OTHER ==
[~2019-10-29] VITALS: Ht 170 cm; Wt 86.3 kg
[2019-10-29] MEDS: TETRACAINE 0.5% OPHTH SOLN 4 ML BTL (SINGLE DOSE ONLY) OU PRN ×4 (06:42→07:13)
[2019-10-29] MEDS ORDERED: TIMOLOL MALEATE 0.5% 5 ML (TIMOPTIC) BTL OU PRN (06:45)
[2019-10-29] MEDS ORDERED: LIDOCAINE PF 1% 2 ML VIAL IR PRN (06:45)
[2019-10-29] MEDS ORDERED: POVIDONE (BETADINE) OPHTH SOLN 5% 30 ML OP ONE (06:45)
[2019-10-29] MEDS ORDERED: MOXIFLOXACIN OPHTH SOLN 5 MG/ML 0.3 ML SYRINGE OP ONE (06:45)
[2019-10-29 06:50] VITALS: BP 133/80
[2019-10-29] MEDS: PHENYLEPHRINE 10% OPHTH (NEO-SYN) 5 ML BTL OU SCH ×3 (06:53→07:14)
[2019-10-29] MEDS: CYCLOPENTOLATE 1% (CYCLOGYL) 2 ML DROPS OP SCH ×3 (06:53→07:14)
--- NOTE | 2019-10-29 07:44 | Ophthalmologist Pre-Op Note ---
Pre-Operative Progress Note H&P Reviewed The H&P was reviewed, patient examined and no changes noted. Date H&P Reviewed: Oct 29, 2019 Time H&P Reviewed: 07:44 Pre-Op Dx Cataract, Left Eye MADDY WHIPPLE MD Oct 29, 2019 07:44
[2019-10-29] MEDS ORDERED: MIDAZOLAM 2 MG/2 ML (VERSED) VIAL ONE (07:51)
[2019-10-29] MEDS ORDERED: acetaZOLAMIDE ER 500 MG CAP (DIAMOX SEQUELS) PO ONE (08:00)
--- NOTE | 2019-10-29 08:09 | Ophthalmology Operative Report ---
Cataract removal/placement IOL PREOPERATIVE DIAGNOSIS: Cataract Left Eye POSTOPERATIVE DIAGNOSIS: Cataract Left Eye PROCEDURE: Cataract removal and placement of posterior chamber implant, left eye SURGEON: Salvador Whipple ANESTHESIA: Topical with sedation COMPLICATIONS: None ESTIMATED BLOOD LOSS: Minimal DESCRIPTION OF PROCEDURE: After proper informed consent was obtained, the patient, a 64 female, was taken to the Operating Room and the left eye was anesthetized with tetracaine. The left eye was then prepped and draped in the usual manner. A wire lid speculum was placed. A paracentesis was made at the left hand position. Preservative free lidocaine was injected into the anterior chamber followed by viscoelastic. A clear corneal incision was made in the temporal position. A capsulorrhexis was preformed and the central nuclear and cortical material were removed. The posterior capsule was polished and an Jorden 23.5 AU00T0 was placed into the capsular bag. The residual viscoelastic was aspirated and balanced saline solution was injected into the anterior chamber. Moxifloxacin was injected into the anterior chamber. The wound was checked and found to be water tight. The patient tolerated the procedure well without complications. SALVADOR WHIPPLE MD Oct 29, 2019 08:09
[2019-10-29 08:20] VITALS: BP 135/75
--- NOTE | 2019-10-29 13:02 | Anesthesia-General Post-Op ---
MAC Patient Condition Mental Status/LOC: Same as Preop Cardiovascular: Satisfactory Nausea/Vomiting: Absent Respiratory: Satisfactory Pain: Controlled Complications: Absent Post Op Complications Complications None Follow Up Care/Instructions Patient Instructions None needed. Anesthesiology Discharge Order Discharge Order Patient is doing well, no complaints, stable vital signs, no apparent adverse anesthesia problems. No complications reported per nursing. FLORENTIN BERRY CRNA Oct 29, 2019 13:01
== END 2019-10-29 08:22 | disposition home or self-care (01) ==
LOC: SDC 06:30
PROVIDERS: ATTEND Specialist
DX: H25.12 Age-related nuclear cataract, left eye (principal); E11.36 Type 2 diabetes mellitus with diabetic cataract; I10 Essential (primary) hypertension; J45.909 Unspecified asthma, uncomplicated; K21.9 Gastro-esophageal reflux disease without esophagitis; M06.9 Rheumatoid arthritis, unspecified; E78.00 Pure hypercholesterolemia, unspecified; M19.90 Unspecified osteoarthritis, unspecified site; E05.00 Thyrotoxicosis with diffuse goiter without thyrotoxic crisis or storm; Z79.899 Other long term (current) drug therapy; Z88.5 Allergy status to narcotic agent; Z80.51 Family history of malignant neoplasm of kidney
CPT/HCPCS: 66984; 82962; V2632

== ENCOUNTER 2021-03-21 21:07 | Emergency (ER) | payer MEDICARE, OTHER ==
[~2021-03-21] VITALS: Ht 170 cm; Wt 86.3 kg
[~2021-03-21 21:07] MED LIST changes: +FERR324T22 PO; -FERR325T17 PO; -LISI1TAB26 PO; +LISI1TAB48 PO; +MONT-40 PO; -MONT10TA26 PO
[2021-03-21 21:15] VITALS: BP 116/63
--- NOTE | 2021-03-21 21:19 | ED EENT ---
History of Present Illness General Chief Complaint: Eye Problems Stated Complaint: SOMETHING IN EYE Source: patient History of Present Illness Date Seen by Provider: Mar 21, 2021 Time Seen by Provider: 21:15 Initial Comments PT ARRIVES VIA POV FROM HOME WITH C/O FOREIGN BODY IN LEFT EYE--UNDER LEFT UPPER EYELID NOTICED IT 30 MINUTES AGO, WHILE WATCHING TV HAS NO IDEA WHAT IT MIGHT BE DENIES RUBBING HER EYE, ETC. NO CHANGES IN VISION NO DRAINAGE PT WEARS GLASSES Allergies and Home Medications Allergies Coded Allergies: codeine (Verified Allergy, Unknown, 10/07/19) meperidine (Verified Allergy, Unknown, 10/07/19) Patient Home Medication List Home Medication List Reviewed: Yes Albuterol Sulfate (Proair Hfa) 1 Puff Puff, 2 PUFF IH Q4H PRN for SHORTNESS OF BREATH, (Reported) Entered as Reported by: SHALOM MONTENEGRO on 10/07/19942 Allopurinol (Allopurinol) 100 Mg Tablet, 100 MG PO DAILY, (Reported) Entered as Reported by: SHALOM MONTENEGRO on 10/07/19942 Ca/D3/Mag#11/Zinc/Cnc Manager/Deion/Bor (Caltrate 600+D Plus Tablet) 1 Each Tablet, 1 EACH PO DAILY, (Reported) Entered as Reported by: AMADOU SWAN on 03/05/16 1316 Cholecalciferol (Vitamin D3) (Vitamin D3) 1,250 Mcg Capsule, 1,250 MCG PO Th, (Reported) Entered as Reported by: SHALOM MONTENEGRO on 10/07/19942 Ferrous Gluconate (Ferrous Gluconate) 324 Mg Tablet, 324 MG PO DAILY, (Reported) Entered as Reported by: SHALOM MONTENEGRO on 10/07/19942 Levocetirizine Dihydrochloride (Levocetirizine Dihydrochloride) 5 Mg Tablet, 5 MG PO DAILY, (Reported) Entered as Reported by: SHALOM MONTENEGRO on 10/07/19942 Levothyroxine Sodium (Levothyroxine Sodium) 125 Mcg Tablet, 125 MCG PO DAILY, (Reported) Entered as Reported by: SHALOM MONTENEGRO on 10/07/19 09 Liraglutide (Victoza 2-Uri) 0.6 Mg/0.1 Ml Pen.injctr, 0.6 MG SQ DAILY, (Reported) Entered as Reported by: SHALOM MONTENEGRO on 10/07/19942 Lisinopril/Hydrochlorothiazide (Lisinopril-Hctz 20-25 mg Tab) 1 Each Tablet, 1 EACH PO DAILY, (Reported) Entered as Reported by: SHALOM MONTENEGRO on 10/07/19942 Lovastatin (Lovastatin) 20 Mg Tablet, 20 MG PO DAILY, (Reported) Entered as Reported by: AMADOU SWAN on 03/05/16 1316 Magnesium Oxide (Magnesium Oxide) 400 Mg Tablet, 400 MG PO DAILY, (Reported) Entered as Reported by: SHALOM MONTENEGRO on 10/07/19942 Meloxicam (Meloxicam) 7.5 Mg Tablet, 7.5 MG PO DAILY, (Reported) Entered as Reported by: RAUL MEHTA on 07/22/15 05 Metformin HCl (Metformin HCl) 500 Mg Tablet, 500 MG PO BID, (Reported) Entered as Reported by: SHALOM MONTENEGRO on 10/07/19942 Montelukast Sodium (Montelukast Sodium) 10 Mg Tablet, 10 MG PO DAILY, (Reported) Entered as Reported by: RAUL MEHTA on 07/22/15517 Potassium Chloride (Potassium Chloride) 10 Meq Capsule.er, 10 MEQ PO DAILY, (Reported) Entered as Reported by: SHALOM MONTENEGRO on 10/07/19942 Vitamin B Complex (Vitamin B Complex) 1 Each Capsule, 1 EACH PO DAILY, (Reported) Entered as Reported by: SHALOM MONTENEGRO on 10/07/19942 Review of Systems Review of Systems Constitutional: no symptoms reported Eyes: See HPI Past Spdsadf-Fotyfl-Ikhrno Hx Immunizations Up To Date Tetanus Booster (TDap): Unknown Seasonal Allergies Seasonal Allergies: Yes Past Medical History Surgeries: No (LEFT LEG FX, LEFT BUNIONECTOMY, EYE SX X3, LAMINECTOMY) Eye Surgery, Gallbladder, Orthopedic Respiratory: Yes (wears oxygen at HS) Asthma Currently Using CPAP: No Currently Using BIPAP: No Cardiac: Yes Hypertension Neurological: No Reproductive Disorders: No Female Reproductive Disorders: 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 Sexually Transmitted Disease: No HIV/AIDS: No Gastrointestinal: Yes Gastroesophageal Reflux, Hiatal Hernia Musculoskeletal: Yes Chronic Back Pain Endocrine: Yes (Graves Disease) Hyperthyroidism, Diabetes, Non-Insulin dep Loss of Vision: Denies Hearing Impairment: Denies Cancer: No Psychosocial: No Integumentary: No Blood Disorders: No Adverse Reaction/Blood Tranf: No Family Medical History Cancer 03 FATHER, Onset:Unknown (Kidney Cancer) Cataract 03 FATHER, Onset:Unknown Dementia Paternal Grandmother, Onset:Unknown Family history: Asthma 09 SISTER, Onset:Unknown Family history: Cardiovascular disease 03 MOTHER, Onset:Unknown Family history: Diabetes mellitus 03 MOTHER, Onset:Unknown Family history: Gastrointestinal disease 09 SISTER, Onset:Unknown (Celiac disease) Family history: Thyroid disorder 09 SISTER, Onset:Unknown Hearing loss 03 FATHER, Onset:Unknown History of - respiratory disease 03 FATHER, Onset:Unknown (emphysema) Visual impairment 09 SISTER, Onset:Unknown (Macular Degeneration) Heart Disease Physical Exam Height, Weight, BMI Height: 5'7.00" Weight: 185lbs. 0.0oz. 83.034151tu; 29.0 BMI Method:Stated General Appearance: WD/WN, no apparent distress Eyes: left eye other (FOREIGN BODY ON UNDERSIDE OF LEFT UPPER EYELID-OUTER ASPECT. EYE ITSELF APPEARS NORMAL. NO DRAINAGE. NO SWELLING. NO EVIDENCE OF TRAUMA. 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 Departure Impression Primary Impression: Foreign body of left eye Disposition: 01 HOME, SELF-CARE Condition: Stable Departure-Patient Inst. Decision time for Depature: 21:18 Referrals: UBALDO WALLS DO (PCP/Family) Primary Care Physician Patient Instructions: Foreign Body in Eye ED Add. Discharge Instructions: DO NOT RUB EYE FOLLOW UP WITH YOUR DR OR EYE DR IF YOU HAVE WORSENING OF SYMPTOMS All discharge instructions reviewed with patient and/or family. Voiced understanding. RAJINDER ROBLES DO Mar 21, 2021 21:19
== END 2021-03-21 21:27 | disposition home or self-care (01) ==
LOC: EDUNIT# 21:07 → ER 21:10
DX: T15.92XA Foreign body on external eye, part unspecified, left eye, initial encounter (principal); I10 Essential (primary) hypertension; E11.9 Type 2 diabetes mellitus without complications; E05.90 Thyrotoxicosis, unspecified without thyrotoxic crisis or storm; J45.909 Unspecified asthma, uncomplicated; Z79.84 Long term (current) use of oral hypoglycemic drugs; Z79.890 Hormone replacement therapy; Z79.899 Other long term (current) drug therapy
CPT/HCPCS: 99281

== ENCOUNTER 2021-09-29 16:46 | Emergency (ER) | payer MEDICARE, OTHER ==
[~2021-09-29] VITALS: Ht 170 cm; Wt 90.0 kg
--- NOTE | 2021-09-29 17:11 | ED Respiratory ---
General Chief Complaint: Respiratory Problems Stated Complaint: SOA Nursing Triage Note: Pt here with soa after stating she ran out of her symbicort. Pt also states she feels intermittent chest pressure when she get soa. Source: patient Exam Limitations: no limitations History of Present Illness Date Seen by Provider: Sep 29, 2021 Time Seen by Provider: 16:58 Initial Comments Patient is a 66-year-old female who presents to the emergency department today with a chief complaint of feeling short of breath and having wheezing at home. Patient has a history of asthma, more severe over the last 15 years requiring her to use albuterol and Symbicort. She states she ran out of her Symbicort 3 d ays ago. She called her primary care doctor's office as well as her pharmaceutical company and they were supposed to overnight her Symbicort Friday night. She states the pharmacy wanted to change her symbicort to a new medication and it was to expensive - she also states she has gotten thrush from different meds in the past and would prefer to stay on the Symbicort. She states when it did not arrive and she became more short of breath she became more anxious. She did have some chest "tightness" with her shortness of breath. Nonradiating. No nausea no diaphoresis. No personal history of coronary artery disease. She has never been a smoker. She is a diabetic. She states she took a puff of her albuterol prior to coming into the emergency department s he is actually feeling better. Nothing makes the shortness of breath any worse. No recent fevers, chills, cough or congestion. She is COVID vaccinated. No swelling in her legs or pain in her calves. No history of blood clot. All other review of systems reviewed and negative except as stated Timing/Duration: yesterday Severity: moderate Prior Episodes/Possible Cause: frequent episodes Modifying Factors: Improves With Albuterol Inhaler Associated Symptoms: chest pain/soreness ("tightness"), shortness of breath, wheezing Allergies and Home Medications Allergies Coded Allergies: codeine (Verified Allergy, Unknown, 10/07/19) meperidine (Verified Allergy, Unknown, 10/07/19) Patient Home Medication List Home Medication List Reviewed: Yes Albuterol Sulfate (Proair Hfa) 1 Puff Puff, 2 PUFF IH Q4H PRN for SHORTNESS OF BREATH, (Reported) Entered as Reported by: SHALOM MONTENEGRO on 10/07/19942 Allopurinol (Allopurinol) 100 Mg Tablet, 100 MG PO DAILY, (Reported) Entered as Reported by: SHALOM MONTENEGRO on 10/07/19942 Ca/D3/Mag#11/Zinc/Accounts Receivable Clerk/Deion/Bor (Caltrate 600+D Plus Tablet) 1 Each Tablet, 1 EAC H PO DAILY, (Reported) Entered as Reported by: AMADOU SWAN on 03/05/16 1316 Cholecalciferol (Vitamin D3) (Vitamin D3) 1,250 Mcg Capsule, 1,250 MCG PO Th, (Reported) Entered as Reported by: SHALOM MONTENEGRO on 10/07/19942 Ferrous Gluconate (Ferrous Gluconate) 324 Mg Tablet, 324 MG PO DAILY, (Reported) Entered as Reported by: SHALOM MONTENEGRO on 10/07/19942 Levocetirizine Dihydrochloride (Levocetirizine Dihydrochloride) 5 Mg Tablet, 5 MG PO DAILY, (Reported) Entered as Reported by: SHALOM MONTENEGRO on 10/07/19942 Levothyroxine Sodium (Levothyroxine Sodium) 125 Mcg Tablet, 125 MCG PO DAILY, (Reported) Entered as Reported by: SHALOM MONTENEGRO on 10/07/19942 Liraglutide (Victoza 2-Uri) 0.6 Mg/0.1 Ml Pen.injctr, 0.6 MG SQ DAILY, (Reported) Entered as Reported by: SHALOM MONTENEGRO on 10/07/19942 Lisinopril/Hydrochlorothiazide (Lisinopril-Hctz 20-25 mg Tab) 1 Each Tablet, 1 EACH PO DAILY, (Reported) Entered as Reported by: SHALOM MONTENEGRO on 10/07/19942 Lovastatin (Lovastatin) 20 Mg Tablet, 20 MG PO DAILY, (Reported) Entered as Reported by: AMADOU SWAN on 03/05/16 1316 Magnesium Oxide (Magnesium Oxide) 400 Mg Tablet, 400 MG PO DAILY, (Reported) Entered as Reported by: SHALOM MONTENEGRO on 10/07/19942 Meloxicam (Meloxicam) 7.5 Mg Tablet, 7.5 MG PO DAILY, (Reported) Entered as Reported by: RAUL MEHTA on 07/22/15517 Metformin HCl (Metformin HCl) 500 Mg Tablet, 500 MG PO BID, (Reported) Entered as Reported by: SHALOM MONTENEGRO on 10/07/19942 Montelukast Sodium (Montelukast Sodium) 10 Mg Tablet, 10 MG PO DAILY, (Reported) Entered as Reported by: RAUL MEHTA on 07/22/15517 Potassium Chloride (Potassium Chloride) 10 Meq Capsule.er, 10 MEQ PO DAILY, (Reported) Entered as Reported by: SHALOM MONTENEGRO on 10/07/19942 Prednisone (Prednisone) 50 Mg Tab, 50 MG PO DAILY Prescribed by: IRWIN PULIDO on 09/29/211746 Vitamin B Complex (Vitamin B Complex) 1 Each Capsule, 1 EACH PO DAILY, (Reported) Entered as Reported by: SHALOM MONTENEGRO on 10/07/19942 Review of Systems Review of Systems Constitutional: see HPI EENTM: no symptoms reported Respiratory: short of breath, wheezing Cardiovascular: chest pain ("tightness" with breathing) Gastrointestinal: no symptoms reported Genitourinary: no symptoms reported Musculoskeletal: no symptoms reported Skin: no symptoms reported All Other Systems Reviewed Negative Unless Noted: Yes Past Zbxxevn-Sibrwc-Ccyshk Hx Immunizations Up To Date Tetanus Booster (TDap): Unknown First/Initial COVID19 Vaccinat: 2020 Second COVID19 Vaccination Marco Antonio: 2020 Seasonal Allergies Seasonal Allergies: Yes Past Medical History Surgery/Hospitalization HX: DM, HTN, GOUT, HYPOTHYROID, Surgeries: No (LEFT LEG FX, LEFT BUNIONECTOMY, EYE SX X3, LAMINECTOMY) Eye Surgery, Gallbladder, Orthopedic Respiratory: Yes (wears oxygen at HS) Asthma Currently Using CPAP: No Currently Using BIPAP: No Cardiac: Yes Hypertension Neurological: No Reproductive Disorders: No Female Reproductive Disorders: Denies [employer] 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 Sexually Transmitted Disease: No HIV/AIDS: No Gastrointestinal: Yes Gastroesophageal Reflux, Hiatal Hernia Musculoskeletal: Yes Chronic Back Pain Endocrine: Yes (Graves Disease) Hyperthyroidism, Diabetes, Non-Insulin dep Loss of Vision: Denies Hearing Impairment: Denies Cancer: No Psychosocial: No Integumentary: No Blood Disorders: No Adverse Reaction/Blood Tranf: No Family Medical History Cancer 03 FATHER, Onset:Unknown (Kidney Cancer) Cataract 03 FATHER, Onset:Unknown Dementia Paternal Grandmother, Onset:Unknown Family history: Asthma 09 SISTER, Onset:Unknown Family history: Cardiovascular disease 03 MOTHER, Onset:Unknown Family history: Diabetes mellitus 03 MOTHER, Onset:Unknown Family history: Gastrointestinal disease 09 SISTER, Onset:Unknown (Celiac disease) Family history: Thyroid disorder 09 SISTER, Onset:Unknown Hearing loss 03 FATHER, Onset:Unknown History of - respiratory disease 03 FATHER, Onset:Unknown (emphysema) Visual impairment 09 SISTER, Onset:Unknown (Macular Degeneration) Heart Disease Physical Exam Vital Signs - First Documented 09/29/21 16:58 Temp 36.4 Pulse 72 Resp 18 B/P (MAP) 134/81 (98) Pulse Ox 98 O2 Delivery Room Air Capillary Refill : Less Than 3 Seconds Height: 5'7.00" Weight: 185lbs. 0.0oz. 83.029502pi; 31.00 BMI Method:Stated General Appearance: WD/WN, no apparent distress Eyes: Bilateral Eye Normal Inspection, Bilateral Eye PERRL, Bilateral Eye EOMI HEENT: PERRL/EOMI Neck: normal inspection Respiratory: lungs clear, normal breath sounds, no respiratory distress, no accessory muscle use, other (97% RA) Cardiovascular: regular rate, rhythm (70's), no murmur Gastrointestinal: non tender, soft Extremities: non-tender, normal inspection, no pedal edema, no calf tenderness Neurologic/Psychiatric: alert, normal mood/affect, oriented x 3 Skin: normal color, warm/dry Progress/Results/Core Measures Suspected Sepsis SIRS Temperature: Pulse: 72 Respiratory Rate: 18 Blood Pressure 134 /81 Mean: 98 Results/Orders My Orders Orders - IRWIN PULIDO MD Ekg Tracing (09/29/21 16:56) Chest 1 View, Ap/Pa Only (09/29/21 17:05) Prednisone Tablet (Deltasone Tablet) (09/29/21 17:15) Medications Given in ED Current Medications Medications Dose Ordered Sig/Dulce Route Start Time Stop Time Status Last Admin Dose Admin Prednisone 50 mg ONCE ONCE PO 09/29/21 17:15 09/29/21 17:16 DC 09/29/21 17:27 50 MG Vital Signs/I&O 09/29/21 16:58 Temp 36.4 Pulse 72 Resp 18 B/P (MAP) 134/81 (98) Pulse Ox 98 O2 Delivery Room Air Capillary Refill : Less Than 3 Seconds Blood Pressure Mean: 98 ECG Initial ECG Impression Date: Sep 29, 2021 Initial ECG Impression Time: 16:59 Initial ECG Rate: 73 Initial ECG Rhythm: Normal Sinus Initial ECG Intervals: Normal Initial ECG Impression: Normal Comment q wave lead III; no ST elevations or depression Diagnostic Imaging Diagonstic Imaging: Xray Plain Films/CT/US/NM/MRI: chest Comments [facility] [place], [place] NAME: JIGNESH DAVIDSON [facility] REC#: [id number] PT STATUS: REG ER : 1955 PHYSICIAN: IRWIN PULIDO MD ADMIT DATE: 09/29/21/ER Draft Date of Exam:09/29/21 CHEST 1 VIEW, AP/PA ONLY INDICATION: SOB wheeze. TECHNIQUE: Single view chest 5:19 PM. CORRELATION STUDY: 03/01/2018. FINDINGS: The heart size, mediastinal configuration and pulmonary vascularity are within normal limits. Perhaps minimal atelectasis at left lung base. Lung moreno otherwise clear. No definitive infiltrate. Overlying monitor leads. Stomach appears to be mildly distended with gas. IMPRESSION: Perhaps minimal left basilar atelectasis. Otherwise unremarkable chest. Dictated on workstation # [id number] Dict: 09/29/21 1732 Trans: 09/29/21 1738 [facility] [id number] Interpreted by: BEATRICE SOLITARIO DO Electronically signed by: Departure Impression Primary Impression: Asthma dependent on inhaled steroids Disposition: HOME, SELF-CARE Condition: Stable Departure-Patient Inst. Decision time for Depature: 17:45 Referrals: UBALDO WALLS DO (PCP/Family) Primary Care Physician Patient Instructions: Asthma, Adult ED Add. Discharge Instructions: Continue to take all of your daily medications as prescribed. You can use your albuterol inhaler 2 puffs every 4-6 hours as needed for shortness of breath. I have given you a dose of prednisone today and a prescription through Friday that may hold you over until you get a refill on your Symbicort. Monitor your blood sugars closely while on the prednisone because the prednisone can increase them. Watch your carbohydrate intake. Please follow-up with your primary care doctor on Friday. Return to the emergency department for any new, concerning or emergent complaints Scripts Prednisone (Prednisone) 50 Mg Tab 50 MG PO DAILY for 4 Days, #4 TAB Prov: IRWIN PULIDO MD 09/29/21 Copy Copies To 1: UBALDO WALLS KATHRYN M MD Sep 29, 2021 17:11
[2021-09-29] MEDS ORDERED: predniSONE 20 MG TAB PO ONE (17:15)
--- NOTE | 2021-09-29 17:38 | Diagnostic Imaging Report ---
INDICATION: SOB wheeze. TECHNIQUE: Single view chest 5:19 PM. CORRELATION STUDY: 03/01/2018. FINDINGS: The heart size, mediastinal configuration and pulmonary vascularity are within normal limits. Perhaps minimal atelectasis at left lung base. Lung moreno otherwise clear. No definitive infiltrate. Overlying monitor leads. Stomach appears to be mildly distended with gas. IMPRESSION: Perhaps minimal left basilar atelectasis. Otherwise unremarkable chest. Dictated by: Dictated on workstation # [id number]
[2021-09-29] MEDS ORDERED: PRD50T PO ×2 (17:47→17:51)
[2021-09-29 17:57] VITALS: BP 134/81
== END 2021-09-29 17:57 | disposition home or self-care (01) ==
LOC: EDUNIT# 16:46 → ER 16:48
DX: J45.909 Unspecified asthma, uncomplicated (principal); Z99.81 Dependence on supplemental oxygen; Z79.51 Long term (current) use of inhaled steroids
CPT/HCPCS: 71045; 93005

== ENCOUNTER 2021-12-04 08:41 | Emergency (ER) | payer MEDICARE, OTHER ==
[~2021-12-04] VITALS: Ht 170.2 cm; Wt 87.9 kg
[~2021-12-04 08:41] MED LIST changes: +PRD50T PO
[2021-12-04] MEDS ORDERED: ASPIRIN 81 MG CHEW (CHILDREN'S ASA) PO ONE (09:30)
--- NOTE | 2021-12-04 09:31 | ED Chest Pain ---
General Chief Complaint: Chest Pain Stated Complaint: CHEST PAINS Nursing Triage Note: PT AMB TO RM 5 WITH COMPLAINT OF CP/ TIGHTNESS. STATES PAIN STARTED THIS MORNING WHEN SHE WAS GETTING HER COFFEE. STATES PAIN STARTS UNDER HER LEFT BREAST AND RADIATES HER BACK. STATES TOOK AN 81MG BABY ASA THIS MORNING, TAKES DAILY. Source: patient Exam Limitations: no limitations History of Present Illness Date Seen by Provider: Dec 04, 2021 Time Seen by Provider: 09:15 Initial Comments Patient is a 66-year-old female who presents to the emergency room with a chief complaint of left-sided "squeezing" chest pain. Patient states she was sitting down this morning to have a cup of coffee when she had sudden onset of symptoms at about 8 AM. She states it felt like it was a little bit in her left shoulder. She states it persisted until she got to the emergency room and it has subsequently started to ease off. She states she felt a little nauseated in the car on the way to the hospital. She does take a blood pressure pill, a cholesterol pill as well as she is a diabetic. She states the discomfort is improved on arrival. (lasted about 1 hour). Not worsened by exertion. No shortness of breath. No sweating. History of a chemical stress test about 4 years ago with no cath. Her father has a history of CAD. She is a diabetic. Not a smoker. No recent illnesses. No fevers, chills, cough or COVID symptoms. All other ROS reviewed and neg except as stated. Timing/Duration: 1-3 hours Severity/Quality: moderate, pressure, other ("SQUEEZING") Location: shoulder Radiation: arms (LEFT SHOULDER) Prior CP/Workup: cardiolye scan (4-5 YEARS AGO) ASA po SALES PROCESS MANAGER: No NTG SL SALES PROCESS MANAGER: No Associated Symptoms: nausea/vomiting; No shortness of breath Allergies and Home Medications Allergies Coded Allergies: codeine (Verified Allergy, Unknown, 10/07/19) meperidine (Verified Allergy, Unknown, 10/07/19) Patient Home Medication List Home Medication List Reviewed: Yes Albuterol Sulfate (Proair Hfa) 1 Puff Puff, 2 PUFF IH Q4H PRN for SHORTNESS OF BREATH, (Reported) Entered as Reported by: SHALOM MONTENEGRO on 10/07/19 0943 Allopurinol (Allopurinol) 100 Mg Tablet, 100 MG PO DAILY, (Reported) Entered as Reported by: SHALOM MONTENEGRO on 10/07/19942 Ca/D3/Mag#11/Zinc/Addictions Counselor/Deion/Bor (Caltrate 600+D Plus Tablet) 1 Each Tablet, 1 EACH PO DAILY, (Reported) Entered as Reported by: AMADOU SWAN on 03/05/16 1316 Cholecalciferol (Vitamin D3) (Vitamin D3) 1,250 Mcg Capsule, 1,250 MCG PO Th, (Reported) Entered as Reported by: SHALOM MONTENEGRO on 10/07/19942 Ferrous Gluconate (Ferrous Gluconate) 324 Mg Tablet, 324 MG PO DAILY, (Reported) Entered as Reported by: SHALOM MONTENEGRO on 10/07/19942 Levocetirizine Dihydrochloride (Levocetirizine Dihydrochloride) 5 Mg Tablet, 5 MG PO DAILY, (Reported) Entered as Reported by: SHALOM MONTENEGRO on 10/07/19942 Levothyroxine Sodium (Levothyroxine Sodium) 125 Mcg Tablet, 125 MCG PO DAILY, (Reported) Entered as Reported by: SHALOM MONTENEGRO on 10/07/19942 Liraglutide (Victoza 2-Uri) 0.6 Mg/0.1 Ml Pen.injctr, 0.6 MG SQ DAILY, (Reported) Entered as Reported by: SHALOM MONTENEGRO on 10/07/19942 Lisinopril/Hydrochlorothiazide (Lisinopril-Hctz 20-25 mg Tab) 1 Each Tablet, 1 EACH PO DAILY, (Reported) Entered as Reported by: SHALOM MONTENEGRO on 10/07/19942 Lovastatin (Lovastatin) 20 Mg Tablet, 20 MG PO DAILY, (Reported) Entered as Reported by: AMADOU SWAN on 03/05/16 1316 Magnesium Oxide (Magnesium Oxide) 400 Mg Tablet, 400 MG PO DAILY, (Reported) Entered as Reported by: SHALOM MONTENEGRO on 10/07/19942 Meloxicam (Meloxicam) 7.5 Mg Tablet, 7.5 MG PO DAILY, (Reported) Entered as Reported by: RAUL MEHTA on 07/22/15 0518 Metformin HCl (Metformin HCl) 500 Mg Tablet, 500 MG PO BID, (Reported) Entered as Reported by: SHALOM MONTENEGRO on 10/07/19 09 Montelukast Sodium (Montelukast Sodium) 10 Mg Tablet, 10 MG PO DAILY, (Reported) Entered as Reported by: RAUL MEHTA on 07/22/15 0518 Potassium Chloride (Potassium Chloride) 10 Meq Capsule.er, 10 MEQ PO DAILY, (Reported) Entered as Reported by: SHALOM MONTENEGRO on 10/07/19 09 Prednisone (Prednisone) 50 Mg Tab, 50 MG PO DAILY Prescribed by: IRWIN PULIDO on 09/29/21 175 Vitamin B Complex (Vitamin B Complex) 1 Each Capsule, 1 EACH PO DAILY, (Reported) Entered as Reported by: SHALOM MONTENEGRO on 10/07/19942 Review of Systems Review of Systems Constitutional: see HPI EENTM: No Symptoms Reported Respiratory: No Symptoms Reported Cardiovascular: Chest Pain, Lightheadedness, Palpitations Gastrointestinal: Nausea Genitourinary: No Symptoms Reported Musculoskeletal: no symptoms reported Skin: no symptoms reported Psychiatric/Neurological: No Symptoms Reported Past Fueycnc-Fsdyex-Fbycde Hx Patient Social History Tobacco Use?: No Use of E-Cig and/or Vaping dev: No Substance use?: No Alcohol Use?: No Pt feels they are or have been: No Immunizations Up To Date Tetanus Booster (TDap): Unknown First/Initial COVID19 Vaccinat: 2020 Second COVID19 Vaccination Marco Antonio: 2020 Third COVID19 Vaccination Date: 2020 Seasonal Allergies Seasonal Allergies: Yes Past Medical History Surgery/Hospitalization HX: DM, HTN, GOUT, HYPOTHYROID, Surgeries: No (LEFT LEG FX, LEFT BUNIONECTOMY, EYE SX X3, LAMINECTOMY) Eye Surgery, Gallbladder, Orthopedic Respiratory: Yes (wears oxygen at HS) Asthma Currently Using CPAP: No Currently Using BIPAP: No Cardiac: Yes Hypertension Neurological: No Reproductive Disorders: No Female Reproductive Disorders: Denies [employer] 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 Sexually Transmitted Disease: No HIV/AIDS: No Gastrointestinal: Yes Gastroesophageal Reflux, Hiatal Hernia Musculoskeletal: Yes Chronic Back Pain Endocrine: Yes (Graves Disease) Hyperthyroidism, Diabetes, Non-Insulin dep Loss of Vision: Denies Hearing Impairment: Denies Cancer: No Psychosocial: No Integumentary: No Blood Disorders: No Adverse Reaction/Blood Tranf: No Family Medical History Cancer 03 FATHER, Onset:Unknown (Kidney Cancer) Cataract 03 FATHER, Onset:Unknown Dementia Paternal Grandmother, Onset:Unknown Family history: Asthma 09 SISTER, Onset:Unknown Family history: Cardiovascular disease 03 MOTHER, Onset:Unknown Family history: Diabetes mellitus 03 MOTHER, Onset:Unknown Family history: Gastrointestinal disease 09 SISTER, Onset:Unknown (Celiac disease) Family history: Thyroid disorder 09 SISTER, Onset:Unknown Hearing loss 03 FATHER, Onset:Unknown History of - respiratory disease 03 FATHER, Onset:Unknown (emphysema) Visual impairment 09 SISTER, Onset:Unknown (Macular Degeneration) Heart Disease Physical Exam Vital Signs Vital Signs - First Documented 12/04/21 08:43 Pulse 73 Resp 22 B/P (MAP) 158/74 (102) Pulse Ox 98 O2 Delivery Room Air Capillary Refill : Less Than 3 Seconds Height, Weight, BMI Height: 5'7.00" Weight: 185lbs. 0.0oz. 83.729037zz; 30.00 BMI Method:Stated General Appearance: No Apparent Distress, WD/WN HEENT: PERRL/EOMI Neck: Normal Inspection Respiratory: Lungs Clear, Normal Breath Sounds, No Accessory Muscle Use, No Respiratory Distress Cardiovascular: Regular Rate, Rhythm, Normal Peripheral Pulses Gastrointestinal: Non Tender, Soft Extremity: Normal Capillary Refill, Normal Inspection, Normal Range of Motion, Non Tender, No Calf Tenderness, No Pedal Edema Neurologic/Psychiatric: Alert, Oriented x3, No Motor/Sensory Deficits, Normal Mood/Affect Skin: Normal Color, Warm/Dry Progress/Results/Core Measures Results/Orders Lab Results Laboratory Tests Test 12/04/21 08:52 12/04/21 11:57 12/04/21 12:23 Range/Units White Blood Count 6.9 4.3-11.0 10^3/uL Red Blood Count 4.98 3.80-5.11 10^6/uL Hemoglobin 15.7 11.5-16.0 g/dL Hematocrit 48 35-52 % Mean Corpuscular Volume 96 80-99 fL Mean Corpuscular Hemoglobin 32 25-34 pg Mean Corpuscular Hemoglobin Concent 33 32-36 g/dL Red Cell Distribution Width 13.4 10.0-14.5 % Platelet Count 283 130-400 10^3/uL Mean Platelet Volume 11.5 9.0-12.2 fL Immature Granulocyte % (Auto) 0 % Neutrophils (%) (Auto) 65 42-75 % Lymphocytes (%) (Auto) 23 12-44 % Monocytes (%) (Auto) 7 0-12 % Eosinophils (%) (Auto) 4 0-10 % Basophils (%) (Auto) 1 0-10 % Neutrophils # (Auto) 4.5 1.8-7.8 10^3/uL Lymphocytes # (Auto) 1.6 1.0-4.0 10^3/uL Monocytes # (Auto) 0.5 0.0-1.0 10^3/uL Eosinophils # (Auto) 0.3 0.0-0.3 10^3/uL Basophils # (Auto) 0.1 0.0-0.1 10^3/uL Immature Granulocyte # (Auto) 0.0 0.0-0.1 10^3/uL Prothrombin Time 12.9 12.2-14.7 SEC INR Comment 0.9 0.8-1.4 Activated Partial Thromboplast Time 30 24-35 SEC Sodium Level 138 135-145 MMOL/L Potassium Level 4.5 3.6-5.0 MMOL/L Chloride Level 106 98-107 MMOL/L Carbon Dioxide Level 23 21-32 MMOL/L Anion Gap 9 5-14 MMOL/L Blood Urea Nitrogen 20 H 7-18 MG/DL Creatinine 1.23 0.60-1.30 MG/DL Estimat Glomerular Filtration Rate 48 BUN/Creatinine Ratio 16 Glucose Level 134 H 70-105 MG/DL Calcium Level 9.8 8.5-10.1 MG/DL Corrected Calcium 9.5 8.5-10.1 MG/DL Magnesium Level 2.4 1.6-2.4 MG/DL Total Bilirubin 0.4 0.1-1.0 MG/DL Aspartate Amino Transf (AST/SGOT) 31 5-34 U/L Alanine Aminotransferase (ALT/SGPT) 44 0-55 U/L Alkaline Phosphatase 112 40-136 U/L Myoglobin 91.6 10.0-92.0 NG/ML Troponin I < 0.028 < 0.028 <0.028 NG/ML Total Protein 7.6 6.4-8.2 GM/DL Albumin 4.4 3.2-4.5 GM/DL Glucometer 97 70-110 MG/DL My Orders Orders - IRWIN PULIDO MD Ekg Tracing (12/04/21 08:45) Cbc With Automated Diff (12/04/21:) Magnesium (12/04/21) Chest 1 View, Ap/Pa Only (12/04/21) Comprehensive Metabolic Panel (12/04/21:) Myoglobin Serum (12/04/21:) Protime With Inr (12/04/21) Partial Thromboplastin Time (12/04/21) O2 (12/04/21:) Monitor-Rhythm Ecg Trace Only (12/04/21) Ed Iv/Invasive Line Start (12/04/21) Troponin I [place] (12/04/21:) Aspirin Chewable Tablet (Baby Aspirin Ch (12/04/21 09:30) Accucheck Stat ONCE (12/04/21 11:55) Troponin I [place] (12/04/21 11:55) Medications Given in ED Vital Signs/I&O 12/04/21 12/04/21 08:43 13:39 Pulse 73 61 Resp 22 15 B/P (MAP) 158/74 (102) 133/71 Pulse Ox 98 95 O2 Delivery Room Air Room Air Blood Pressure Mean: 102 Progress Progress Note #1: Time: 11:29 Progress Note Patient is resting comfortably, her discomfort in her left chest is completely gone again. She has normal initial work-up, chest x-ray, EKG and labs. We will repeat troponin at noon for a 4-hour level. We will follow her up with Dr. Cummings. Patient's last test was in [address] Calvo. It was normal. Secondary to patient's complaints of repeated near syncope with specifically Valsalva maneuver with defecation (even without straining - and sometimes just eating alone will bring on these symptoms when she has the urge to have a bowel movement) which happens almost every time she eats likely due to the medication she is on for her diabetes we will also have her follow-up with Dr. Cummings for this. I believe she needs possibly a loop recorder to monitor her rhythms when she has these events to make sure she is not having some type of dysrhythmia. She definitely needs a tilt table test. She may be a candidate for medication to help prevent these episodes. She should talk to her primary care provider about the medication she is on for her diabetes so that may be if she is not on medicines that are known to cause diarrhea she would not have these symptoms precipitated so often. It is quite debilitating to her lifestyle and enjoyment to feel like she is going to pass out every time she has to go to the bathroom. I have provided her some information from up-to-date on syncope. We will refer her as stated to Dr. Cummings Progress Note #2: Time: 13:16 Progress Note Patient remains asymptomatic, stable vital signs. I have reviewed laboratory results with her. Two troponin levels 4 hours apart are both undetectable. I have advised her to call Dr. Cummings's office today for a follow-up appointment regarding both the chest pain and the near syncopal episodes. I truly believe she has some reflex syncope and potentially she may have a cardiac origin of this. I have discussed with her return precautions. She verbalized understanding. She is comfortable with the plan of care. All questions are sought and answered. Patient is stable for discharge Initial ECG Impression Date: Dec 04, 2021 Initial ECG Impression Time: 08:48 Initial ECG Rate: 72 Initial ECG Rhythm: Normal Sinus Initial ECG Intervals: Normal Comment Deep Q waves in lead III also a Q wave in aVF. No ectopy, normal intervals. No ST-T wave elevation or depression Diagnostic Imaging Diagonstic Imaging: Xray Plain Films/CT/US/NM/MRI: chest Comments [facility]. [place], [place] NAME: JIGNESH DAVIDSON [facility] REC#: [id number] PT STATUS: REG ER : 1955 PHYSICIAN: IRWIN PULIDO MD ADMIT DATE: 12/04/21/ER Signed Date of Exam:12/04/21 CHEST 1 VIEW, AP/PA ONLY Indication: Chest pain Portable chest 9:39 AM Heart size and pulmonary vascularity are normal. Lungs are clear. There are no effusions or pneumothoraces. IMPRESSION: No acute abnormalities in the chest Dictated by: Dictated on workstation # [id number] Dict: 12/04/21 1000 Trans: 12/04/21 1001 TCB [id number] Interpreted by: NESSA GREY MD Electronically signed by: NESSA GREY MD 12/04/21 1001 Departure Impression Primary Impression: Chest pain Qualified Codes: R07.9 - Chest pain, unspecified Additional Impression: Syncope, near Disposition: 01 HOME, SELF-CARE Condition: Improved Departure-Patient Inst. Decision time for Depature: 13:17 Referrals: SHREYA CUMMINGS MD [facility] UBALDO WALLS DO (PCP/Family) Primary Care Physician Patient Instructions: Chest Pain, Adult ED Add. Discharge Instructions: Continue your daily medications as prescribed by your primary provider. You might talk to your primary provider about changing your diabetes medications to medications that do not have as much of a diarrhea affect. If you have any return of chest pressure/"squeezing" especially with shortness of breath, nausea or sweating please return to the emergency room for reevaluation. I have given you contact information for Dr. Cummings who is the dean of girls on- call. Please call his office today for follow-up regarding the chest pain this week as well as to discuss the episodes of passing out or nearly passing out with him. You may need a Tilt table test/ implanted monitor to monitor your heart rate and rhythms during these episodes. Return to the emergency department for any new, concerning or emergent complaints. Copy Copies To 1: SHREYA CUMMINGS MD [facility] IRWIN PULIDO MD Dec 04, 2021 09:31
[2021-12-04 09:35] LABS: BASOPHILS # (AUTO) 0.1 10^3/uL (0.0-0.1); BASOPHILS % (AUTO) 1 % (0-10); EOSINOPHILS # (AUTO) 0.3 10^3/uL (0.0-0.3); EOSINOPHILS % (AUTO) 4 % (0-10); HEMATOCRIT 48 % (35-52); HEMOGLOBIN 15.7 g/dL (11.5-16.0); LYMPHOCYTES # (AUTO) 1.6 10^3/uL (1.0-4.0); LYMPHOCYTES % (AUTO) 23 % (12-44); MEAN CORPUSCULAR HEMOGLOBIN 32 pg (25-34); MEAN CORPUSCULAR HGB CONC 33 g/dL (32-36); MEAN CORPUSCULAR VOLUME 96 fL (80-99); MEAN PLATELET VOLUME 11.5 fL (9.0-12.2); MONOCYTES # (AUTO) 0.5 10^3/uL (0.0-1.0); MONOCYTES % (AUTO) 7 % (0-12); NEUTROPHILS # (AUTO) 4.5 10^3/uL (1.8-7.8); NEUTROPHILS % (AUTO) 65 % (42-75); PLATELET COUNT 283 10^3/uL (130-400); WHITE BLOOD COUNT 6.9 10^3/uL (4.3-11.0)
[2021-12-04 09:36] LABS: ALBUMIN 4.4 GM/DL (3.2-4.5); POTASSIUM 4.5 MMOL/L (3.6-5.0)
[2021-12-04 09:38] LABS: CALCIUM 9.8 MG/DL (8.5-10.1)
[2021-12-04 09:39] LABS: TOTAL PROTEIN 7.6 GM/DL (6.4-8.2)
[2021-12-04 09:40] LABS: BILIRUBIN,TOTAL 0.4 MG/DL (0.1-1.0)
[2021-12-04 09:42] LABS: CREATININE SERUM 1.23 MG/DL (0.60-1.30)
[2021-12-04 09:43] LABS: INR 0.9 (0.8-1.4); PROTHROMBIN TIME PATIENT 12.9 SEC (12.2-14.7)
[2021-12-04 09:45] LABS: MAGNESIUM 2.4 MG/DL (1.6-2.4)
--- NOTE | 2021-12-04 10:02 | Diagnostic Imaging Report ---
Indication: Chest pain Portable chest 9:39 AM Heart size and pulmonary vascularity are normal. Lungs are clear. There are no effusions or pneumothoraces. IMPRESSION: No acute abnormalities in the chest Dictated by: Dictated on workstation # [id number]
[2021-12-04 13:39] VITALS: BP 133/71
== END 2021-12-04 13:39 | disposition home or self-care (01) ==
LOC: EDUNIT# 08:41 → ER 08:42
DX: R07.89 Other chest pain (principal); R55 Syncope and collapse
CPT/HCPCS: 36415; 71045; 80053; 82947; 83735; 83874; 84484; 85025; 85610; 85730; 93005; 93041

== ENCOUNTER 2021-12-11 08:05 | Day surgery (SDC) | payer MEDICARE, OTHER ==
[~2021-12-11] VITALS: Ht 170.2 cm; Wt 89.4 kg
[2021-12-11] VITALS (10 sets, daily range): BP systolic 108–132; BP diastolic 46–91
[~2021-12-11 08:05] MED LIST changes: +ALBU8.5H6 IH; -RT-ALBUINH IH
[2021-12-11] MEDS ORDERED: HEParin (CATH LAB) 2,000 ML IV ONE (08:10)
[2021-12-11] MEDS ORDERED: NS IV 1000 ML 1,000 ML ONE (08:10)
[2021-12-11] MEDS ORDERED: LIDOCAINE 1% INJ 30 ML (XYLOCAINE) VIAL ONE (08:10)
[2021-12-11] MEDS ORDERED: NS IV 1000 ML 1,000 ML IV SCH ×2 (08:15→13:00)
[2021-12-11 08:33] LABS: HEMATOCRIT 46 % (35-52); MEAN CORPUSCULAR HEMOGLOBIN 31 pg (25-34); MEAN CORPUSCULAR HGB CONC 33 g/dL (32-36); MEAN CORPUSCULAR VOLUME 95 fL (80-99); MEAN PLATELET VOLUME 10.9 fL (9.0-12.2); PLATELET COUNT 268 10^3/uL (130-400); WHITE BLOOD COUNT 6.9 10^3/uL (4.3-11.0)
[2021-12-11] MEDS ORDERED: MIDAZOLAM 2 MG/2 ML (VERSED) VIAL ONE (08:33)
[2021-12-11] MEDS ORDERED: fentaNYL INJ 100 MCG/2 ML AMP ONE (08:33)
[2021-12-11 08:45] LABS: INR 0.9 (0.8-1.4); PROTHROMBIN TIME PATIENT 12.7 SEC (12.2-14.7)
[2021-12-11 08:55] LABS: ALBUMIN 4.3 GM/DL (3.2-4.5); BILIRUBIN,TOTAL 0.3 MG/DL (0.1-1.0); CALCIUM 9.8 MG/DL (8.5-10.1); CREATININE SERUM 1.18 MG/DL (0.60-1.30); POTASSIUM 4.7 MMOL/L (3.6-5.0); TOTAL PROTEIN 7.5 GM/DL (6.4-8.2)
[2021-12-11] MEDS ORDERED: LIPOIC ACID PO (09:04)
[2021-12-11] MEDS ORDERED: SUPER C PO (09:04)
[2021-12-11] MEDS ORDERED: [UNRECOGNIZED DRUG - CODE] PO (09:04)
[2021-12-11] MEDS ORDERED: CALC-722 PO (09:04)
[2021-12-11] MEDS ORDERED: EMPA25TA PO (09:04)
[2021-12-11] MEDS ORDERED: LISI20TA26 PO (09:04)
[2021-12-11] MEDS ORDERED: FERR-84 PO (09:04)
[2021-12-11] MEDS ORDERED: NRT10C PO (09:04)
[2021-12-11] MEDS ORDERED: MONT-40 PO (09:04)
[2021-12-11] MEDS ORDERED: MULT-1054 PO (09:04)
[2021-12-11] MEDS ORDERED: LEVO112T39 PO (09:04)
[2021-12-11] MEDS ORDERED: ASPI-1238 PO (09:04)
[2021-12-11] MEDS ORDERED: MELO7.5T46 PO (09:04)
[2021-12-11] MEDS ORDERED: INSU100I10 SQ (09:04)
[2021-12-11] MEDS ORDERED: [UNRECOGNIZED DRUG - CODE] PO (09:04)
[2021-12-11] MEDS ORDERED: BUDE10.26 INH (09:04)
[2021-12-11] MEDS ORDERED: BUSP5TAB59 PO (09:04)
--- NOTE | 2021-12-11 12:52 | Cardiac Procedure Note-CS/ASA ---
Pre-Procedure Note Pre-Op Procedure Note Date of Available H&P: Dec 11, 2021 Date H&P Reviewed: Dec 06, 2021 Time H&P Reviewed: 10:00 History & Physical: H&P Reviewed, No changes noted Conscious Sedation Pre-Proced Time 10:00 ASA Score 3 For ASA 3 and 4: Consider anesthesia and medical clearance. Also, for patients with a history of failed moderate sedation consider anesthesia. Airway Lungs Heart ASA score ASA 1: a normal healthy patient ASA 2: a patient with a mild systemic disease (mid diabetes, controlled hypertension, obesity ASA 3: a patient with a severe systemic disease that limits activity (angina, COPD, prior Myocardial infarction) ASA 4: a patient with an incapacitating disease that is a constant threat to life (CHF, renal failure) ASA 5: a moribund patient not expected to survive 24 hrs. (ruptured aneurysm) ASA 6: a declared brain- patient whose organs are being harvested. For emergent operations, add the letter E after the classification Mallampati Classification Grade 2 Sedation Plan Analgesia, Amnesia, Plan communicated to team members The patient is an appropriate candidate to undergo the planned procedure, sedation, and anesthesia. The patient immediately re-assessed prior to indication. SHREYA JOHNSON MD FACP FAC CCDS Dec 11, 2021 12:52
--- NOTE | 2021-12-11 12:56 | Discharge Inst-Cardiology ---
Discharge Inst-Cardiac Discharge Medications Continued Medications: Acetylcysteine (Nac) 600 Mg Tablet 600 MG PO HS, TAB Albuterol Sulfate (Ventolin Hfa) 90 Mcg Hfa.aer.ad 2 PUFF IH BID, PUFF Allopurinol (Allopurinol) 100 Mg Tablet 100 MG PO DAILY, TAB Budesonide/Formoterol Fumarate (Budesonide-Formoterol 160-4.5) 160 Mcg-4.5 Mcg/Actuation Hfa.aer.ad 2 PUFF INH BID, EA Buspirone HCl (Buspirone HCl) 5 Mg Tablet 10 MG PO BID, TAB TAKES 2 (5MG) TABLETS Calcium Carb & Citrate/Vit D3 (Citracal + D ER Tablet) 600MG-12.5 Tablet.er 1 EACH PO HS, TAB Cholecalciferol (Vitamin D3) (Vitamin D3) 1,250 Mcg (36831 Unit) Capsule 1250 MCG PO FRIDAY, CAP Empagliflozin (Jardiance) 25 Mg Tablet 25 MG PO HS, TAB Ferrous Sulfate (Iron) 325 Mg (65 Mg Iron) Tablet 325 MG PO HS, TAB Guaifenesin (Mucus ER) 1,200 Mg Tab.er.12h 1200 MG PO BID, TAB Insulin Glargine,Hum.rec.anlog (Lantus Solostar) 100 Unit/Ml (3 Ml) Insuln.pen 4 UNITS SQ HS, UNITS Levocetirizine Dihydrochloride (Levocetirizine Dihydrochloride) 5 Mg Tablet 5 MG PO HS, TAB Levothyroxine Sodium (Levoxyl) 112 Mcg Tablet 112 MCG PO DAILY, TAB [Lipoic Acid] () 600 MG PO HS Liraglutide (Victoza 2-Uir) 0.6 Mg/0.1 Ml (18 Mg/3 Ml) Pen.injctr 1.8 MG SQ HS, VIAL Lisinopril (Lisinopril) 20 Mg Tablet 20 MG PO DAILY, TAB Lovastatin (Lovastatin) 20 Mg Tablet 20 MG PO HS, TAB Magnesium Oxide (Magnesium Oxide) 400 Mg Magnesium Tablet 400 MG PO HS, TAB Meloxicam (Meloxicam) 7.5 Mg Tablet 7.5 MG PO DAILY, TAB Montelukast Sodium (Montelukast Sodium) 10 Mg Tablet 10 MG PO HS, TAB Multivitamin with Minerals (Hair, Skin & Nails) 1 Each Tablet 3 EACH PO DAILY, TAB TAKES 3 TABLETS Nortriptyline HCl (Nortriptyline HCl) 10 Mg Capsule 10 MG PO HS, CAP [Super C] () 1 TAB PO HS Discontinued Medications: Aspirin (Aspirin EC) 81 Mg Tablet.dr 81 MG PO DAILY, TAB Metformin HCl (Metformin HCl) 500 Mg Tablet 500 MG PO BID, TAB Patient Instructions Patient Instructions: Hold METFORMIN until the afternoon of 12/13/21. Then resume previous home dose SHREYA JOHNSON MD FACP FAC CCDS Dec 11, 2021 12:56
--- NOTE | 2021-12-11 12:56 | Discharge Inst-Post CATH ---
Discharge Inst-CATH/EP Post Cardiac Cath/EP D/C Inst Follow Up/Plan F/u with Dr Cummings in 2 - 3 weeks ACTIVITY * Go Home directly and rest. * Limit activity of the leg (or wrist if it was used) for 7 days including aerobics, swimming, jogging, bicycling, etc. * Restrict stair-climbing for 7 days if possible, if not, climb up with your non-cath leg, then bring together on the same step. * Avoid lifting, pushing, pulling or excessive movement of the affected extremity for 7 days. * Customary sexual activity may be resumed after 2 days-use caution not to use a position that strains or causes pain to the affected extremity. * No driving for 24 hours. * NO SMOKING. * Avoid straining for bowel movements for 7 days. * Gentle walking on level ground is allowed. * Returning to work will depend on the type of procedure and the results. Your doctor will discuss this with you. CALL YOUR DOCTOR FOR ANY OF THE FOLLOWING: *If bleeding from the puncture site occurs- Apply gentle pressure to site with clean cloth and call your doctor or EMS. * If a knot or lump forms under the skin, increases in size, or causes pain. * If bruising appears to be worsening or moving further down your leg instead of disappearing. * Temperature above 101 F. CARE OF YOUR GROIN INCISION; * Bruising or purple discoloration of the skin near the puncture site is common. * You may shower only, no bathtub bathing for 5 days. Be careful to avoid slipping as your leg may feel stiff. * If a closure device was used on your femoral artery, please see the attached guide regarding care of the device and your leg. * Leave dressing on FOR 24 hours. CARE OF YOUR WRIST INCISION; * Bruising or purple discoloration of the skin near the puncture site is common. * You may shower. * DO NOT submerge wrist. * Leave dressing on FOR 24 hours. SHREYA CUMMINGS MD [facility] CCDS Dec 11, 2021 12:56
[2021-12-11] MEDS ORDERED: PATIENT MAY USE OWN MEDS, ALL PO SCH (13:00)
--- NOTE | 2021-12-11 14:25 | CARDIAC CATHETERIZATION ---
DATE OF SERVICE: 12/11/2021 The patient is a 66-year-old lady who has coronary artery disease risk factors and who has been experiencing chest discomfort. She has been quite concerned about her chest discomfort and had emergency room visits. Cardiac catheterization was carried out today after having obtained an informed consent. DESCRIPTION OF PROCEDURE: She was brought to the cardiac catheterization laboratory in a fasting state. Right groin was prepared and draped in the usual sterile fashion. Lidocaine 1% was used for local anesthesia. Modified Seldinger technique was used to advance a 5-Malagasy sheath in right femoral artery. A 5-Malagasy JL4 3.5 catheter was used for left coronary angiography. A 5-Malagasy JR4 catheter was used for right coronary angiography, 5-Malagasy pigtail catheter was used for left heart catheterization and left ventricular angiography. At the end of the procedure, angiography of the right femoral artery was carried out through the sheath and Mynx was used to achieve hemostasis. She tolerated the procedure well. HEMODYNAMICS: Left ventricular end-diastolic pressure following coronary angiography was 17 mmHg. There was no significant pressure gradient on pullback across the aortic valve. CORONARY ANGIOGRAPHY: Left main coronary artery, left anterior descending artery, left circumflex artery, right coronary artery do not exhibit any angiographically significant disease. Right coronary artery is dominant. LEFT VENTRICULAR ANGIOGRAPHY: Left ventricular angiography was carried out in the right anterior oblique projection. Global left ventricular systolic function normal. No regional wall motion abnormalities are seen. Left ventricular ejection fraction approximately 60%. CONCLUSIONS: 1. No angiographically significant coronary artery disease. 2. Normal global left ventricular systolic function with ejection fraction of 60%. 3. Mild elevation of left ventricular end-diastolic pressure. DISCUSSION AND RECOMMENDATIONS: Based on results of the study, it appears appropriate to continue a conservative approach. Risk factor modification has been reviewed. Outpatient followup is advised. Job ID: [id number] DocumentID: [id number] Dictated Date: 12/11/2021 11:22:13 Medical Services Coordinator Date: 12/11/2021 14:24:41 Dictated By: SHREYA JOHNSON MD, MA, FACP, FACC,
== END 2021-12-11 15:10 | disposition home or self-care (01) ==
LOC: CATH 08:05 → SDC 11:43 → CATH 15:10
PROVIDERS: ATTEND Internal Medicine Cardiovascular Disease
DX: R07.89 Other chest pain (principal); E78.2 Mixed hyperlipidemia; I65.23 Occlusion and stenosis of bilateral carotid arteries; I11.9 Hypertensive heart disease without heart failure; E11.9 Type 2 diabetes mellitus without complications; Z79.4 Long term (current) use of insulin; Z79.84 Long term (current) use of oral hypoglycemic drugs; Z79.85 Long-term (current) use of injectable non-insulin antidiabetic drugs; Z79.899 Other long term (current) drug therapy
CPT/HCPCS: 80053; 80061; 85027; 85610; 85730; 87081; 93005; 93458; C1760; C1894; 36415

== ENCOUNTER 2022-02-06 14:47 | Outpatient (RCR) | payer MEDICARE, OTHER ==
[~2022-02-06 14:47] MED LIST changes: +ASPI-1238 PO; +BUDE10.26 INH; +BUSP5TAB59 PO; +CALC-722 PO; +EMPA25TA PO; +FERR-84 PO; +INSU100I10 SQ; +LEVO112T39 PO; +LIPOIC ACID PO; +LISI20TA26 PO; +MULT-1054 PO; +NRT10C PO; +SUPER C PO; +[UNRECOGNIZED DRUG - CODE] PO; +[UNRECOGNIZED DRUG - CODE] PO
== END 2022-02-09 | disposition home or self-care (01) ==
PROVIDERS: ATTEND Nurse Practitioner Family
DX: M51.36 Other intervertebral disc degeneration, lumbar region (principal); M62.830 Muscle spasm of back; I10 Essential (primary) hypertension; J45.909 Unspecified asthma, uncomplicated; E11.9 Type 2 diabetes mellitus without complications

== ENCOUNTER 2022-02-15 13:17 | Outpatient (RCR) | payer MEDICARE, OTHER ==
[~2022-02-15 13:17] MED LIST changes: +POTA10CA44 PO
== END 2022-03-12 | disposition home or self-care (01) ==
PROVIDERS: ATTEND Nurse Practitioner Family
DX: M51.36 Other intervertebral disc degeneration, lumbar region (principal); M62.830 Muscle spasm of back; I10 Essential (primary) hypertension; J45.909 Unspecified asthma, uncomplicated; E11.9 Type 2 diabetes mellitus without complications

== ENCOUNTER 2022-04-16 09:04 | Emergency (ER) | payer MEDICARE, OTHER ==
[~2022-04-16] VITALS: Ht 170.1 cm; Wt 89.4 kg
--- NOTE | 2022-04-16 09:24 | ED General ---
General Stated Complaint: REAR RT HIP PAIN Source of Information: Patient Exam Limitations: No Limitations History of Present Illness Date Seen by Provider: Apr 16, 2022 Time Seen by Provider: 09:24 Initial Comments Patient is a 66yo female who presents to the ER with a complaint of right posterio pelvic pain/prox thigh pain. She denies trauma/falls/injury. States that she woke up in the middle of the night (2am) with the pain. She did not take anything for it, but did put an ice pack there. She is on meloxicam and didnt think she could take anything else. She states the pain radiates down her leg, but cannot comment on involvement in the foot. She is scheduled on the 29 of April to have surgery with Dr Reddy at [place] at L4/L5. No incontinence, loss of bowel or bladder function. No numbness or tingling. (neuropathy in feet - chronic). Nothing worsens the discomfort; laying with knees bent and supported seems to improve slightly. She states it is not as severe as 2am at this point - she did take her morning dose of meloxicam. Timing/Duration: Other (7 hours) Modifying Factors: improves with Cold Therapy, improves with Immobilization Associated Systoms: Denies Symptoms Allergies and Home Medications Allergies Coded Allergies: codeine (Verified Allergy, Unknown, 04/16/22) meperidine (Verified Allergy, Unknown, 04/16/22) Patient Home Medication List Home Medication List Reviewed: Yes Acetylcysteine (Nac) 600 Mg Tablet, 600 MG PO HS, (Reported) Entered as Reported by: MOLLY WALLER on 12/11/21 09 Albuterol Sulfate (Ventolin Hfa) 90 Mcg Hfa.aer.ad, 2 PUFF IH BID, (Reported) Entered as Reported by: SHALOM MONTENEGRO on 10/07/19 09 Allopurinol (Allopurinol) 100 Mg Tablet, 100 MG PO DAILY, (Reported) Entered as Reported by: SHALOM MONTENEGRO on 10/07/19 09 Budesonide/Formoterol Fumarate (Budesonide-Formoterol 160-4.5) 160 Mcg-4.5 Mcg/Actuation Hfa.aer.ad, 2 PUFF INH BID, (Reported) Entered as Reported by: MOLLY WALLER on 11/1903 Buspirone HCl (Buspirone HCl) 5 Mg Tablet, 10 MG PO BID, (Reported) Entered as Reported by: MOLLY WALLER on 12/11/21903 Calcium Carb & Citrate/Vit D3 (Citracal + D ER Tablet) 600MG-12.5 Tablet.er, 1 EACH PO HS, (Reported) Entered as Reported by: MOLLY WALLER on 12/11/21903 Cholecalciferol (Vitamin D3) (Vitamin D3) 1,250 Mcg (21706 Unit) Capsule, 1,250 MCG PO FRIDAY, (Reported) Entered as Reported by: SHALOM MONTENEGRO on 10/07/19942 Empagliflozin (Jardiance) 25 Mg Tablet, 25 MG PO HS, (Reported) Entered as Reported by: MOLLY WALLER on 12/11/21903 Ferrous Sulfate (Iron) 325 Mg (65 Mg Iron) Tablet, 325 MG PO HS, (Reported) Entered as Reported by: MOLLY WALLER on 12/11/21903 Guaifenesin (Mucus ER) 1,200 Mg Tab.er.12h, 1,200 MG PO BID, (Reported) Entered as Reported by: MOLLY WALLER on 12/11/21903 Insulin Glargine,Hum.rec.anlog (Lantus Solostar) 100 Unit/Ml (3 Ml) Insuln.pen, 4 UNITS SQ HS, (Reported) Entered as Reported by: MOLLY WALLER on 12/11/21903 Levocetirizine Dihydrochloride (Levocetirizine Dihydrochloride) 5 Mg Tablet, 5 MG PO HS, (Reported) Entered as Reported by: SHALOM MONTENEGRO on 10/07/19942 Levothyroxine Sodium (Levoxyl) 112 Mcg Tablet, 112 MCG PO DAILY, (Reported) Entered as Reported by: MOLLY WALLER on 12/11/21903 Liraglutide (Victoza 2-Uri) 0.6 Mg/0.1 Ml (18 Mg/3 Ml) Pen.injctr, 1.8 MG SQ HS, (Reported) Entered as Reported by: SHALOM MONTENEGRO on 10/07/19942 Lisinopril (Lisinopril) 20 Mg Tablet, 20 MG PO DAILY, (Reported) Entered as Reported by: MOLLY WALLER on 12/11/21 09 Lovastatin (Lovastatin) 20 Mg Tablet, 20 MG PO HS, (Reported) Entered as Reported by: AMADOU SWAN on 03/05/16 1316 Magnesium Oxide (Magnesium Oxide) 400 Mg Magnesium Tablet, 400 MG PO HS, (Reported) Entered as Reported by: SHALOM MONTENEGRO on 10/07/19 0943 Meloxicam (Meloxicam) 7.5 Mg Tablet, 7.5 MG PO DAILY, (Reported) Entered as Reported by: MOLLY WALLER on 12/11/21 09 Montelukast Sodium (Montelukast Sodium) 10 Mg Tablet, 10 MG PO HS, (Reported) Entered as Reported by: MOLLY WALLER on 12/11/21903 Multivitamin with Minerals (Hair, Skin & Nails) 1 Each Tablet, 3 EACH PO DAILY, (Reported) Entered as Reported by: MOLLY WALLER on 12/11/21903 Nortriptyline HCl (Nortriptyline HCl) 10 Mg Capsule, 10 MG PO HS, (Reported) Entered as Reported by: MOLLY WALLER on 12/11/21 09 [Lipoic Acid] , 600 MG PO HS, (Reported) Entered as Reported by: MOLLY WALLER on 12/11/21903 [Super C] , 1 TAB PO HS, (Reported) Entered as Reported by: MOLLY WALLER on 12/11/21903 Review of Systems Review of Systems Constitutional: see HPI EENTM: no symptoms reported Respiratory: no symptoms reported Cardiovascular: no symptoms reported Gastrointestinal: no symptoms reported Genitourinary: no symptoms reported Musculoskeletal: joint pain (right posterior hip pain) Skin: no symptoms reported Past Vrjdshu-Qajegm-Drszdc Hx Immunizations Up To Date Tetanus Booster (TDap): Unknown First/Initial COVID19 Vaccinat: 2020 Second COVID19 Vaccination [place]: 2020 Third COVID19 Vaccination Date: 2020 Seasonal Allergies Seasonal Allergies: Yes Past Medical History Surgery/Hospitalization HX: DM, HTN, GOUT, HYPOTHYROID, Surgeries: No (LEFT LEG FX, LEFT BUNIONECTOMY, EYE SX X3, LAMINECTOMY) Eye Surgery, Gallbladder, Orthopedic Respiratory: Yes (wears oxygen at HS) Asthma Currently Using CPAP: No Currently Using BIPAP: No Cardiac: Yes Hypertension Neurological: No Reproductive Disorders: No Female Reproductive Disorders: Denies 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 Sexually Transmitted Disease: No HIV/AIDS: No Gastrointestinal: Yes Gastroesophageal Reflux, Hiatal Hernia Musculoskeletal: Yes Chronic Back Pain Endocrine: Yes (Graves Disease) Hyperthyroidism, Diabetes, Non-Insulin dep Loss of Vision: Denies Hearing Impairment: Denies Cancer: No Psychosocial: No Integumentary: No Blood Disorders: No Adverse Reaction/Blood Tranf: No Family Medical History Cancer 03 FATHER, Onset:Unknown (Kidney Cancer) Cataract 03 FATHER, Onset:Unknown Dementia Paternal Grandmother, Onset:Unknown Family history: Asthma 09 SISTER, Onset:Unknown Family history: Cardiovascular disease 03 MOTHER, Onset:Unknown Family history: Diabetes mellitus 03 MOTHER, Onset:Unknown Family history: Gastrointestinal disease 09 SISTER, Onset:Unknown (Celiac disease) Family history: Thyroid disorder 09 SISTER, Onset:Unknown Hearing loss 03 FATHER, Onset:Unknown History of - respiratory disease 03 FATHER, Onset:Unknown (emphysema) Visual impairment 09 SISTER, Onset:Unknown (Macular Degeneration) Heart Disease Physical Exam Vital Signs Vital Signs - First Documented 04/16/22 09:13 Temp 36.6 Pulse 87 Resp 18 B/P (MAP) 134/98 (110) Pulse Ox 96 O2 Delivery Room Air Capillary Refill : Height, Weight, BMI Height: 5'7.00" Weight: 185lbs. 0.0oz. 83.023662fk; 30.86 BMI Method:Stated General Appearance: No Apparent Distress, WD/WN HEENT: PERRL/EOMI Neck: Normal Inspection Respiratory: Lungs Clear, Normal Breath Sounds, No Accessory Muscle Use, No Respiratory Distress Cardiovascular: Regular Rate, Rhythm, Normal Peripheral Pulses Gastrointestinal: Non Tender, Soft Back: Normal Inspection Extremity: Normal Inspection, Normal Range of Motion, No Calf Tenderness, No Pedal Edema, Other (slight tenderness to palpation right inferior buttock (not in the area of sciatic n)) Neurologic/Psychiatric: Alert, Oriented x3, No Motor/Sensory Deficits, Other (dorsiflexion bilateral feet - 5/5 strength left, 4/5 right; ) Skin: Normal Color, Warm/Dry Progress/Results/Core Measures Suspected Sepsis SIRS Temperature: Pulse: Respiratory Rate: Blood Pressure / Mean: Results/Orders My Orders Orders - IRWIN PULIDO MD Pelvis With Right Hip 2-3views (04/16/22 09:44) Vital Signs/I&O 04/16/22 09:13 Temp 36.6 Pulse 87 Resp 18 B/P (MAP) 134/98 (110) Pulse Ox 96 O2 Delivery Room Air Capillary Refill : Diagnostic Imaging Diagonstic Imaging: Xray Comments [facility], [place] NAME: JIGNESH DAVIDSON [facility] REC#: [id number] PT STATUS: REG ER : 1955 PHYSICIAN: IRWIN PULIDO MD ADMIT DATE: 04/16/22/ER Draft Date of Exam:04/16/22 PELVIS WITH RIGHT HIP 2-3VIEWS PELVIS WITH RIGHT HIP 2-3VIEWS INDICATION: Right hip pain COMPARISON: None available. TECHNIQUE: AP pelvis with AP and lateral views of the hip. FINDINGS: Mild joint space narrowing of the superior aspect right hip. No features of avascular processes of either femoral head. No acetabular retroversion. No fracture or worrisome focal osseous lesion. SI joints are normal. IMPRESSION: Mild osteoarthritis of the right hip. Dictated on workstation # [id number] Dict: 04/16/22 1008 Trans: 04/16/22 1011 [facility] [id number] Interpreted by: TRACY DE LA TORRE MD Electronically signed by: Departure Impression Primary Impression: Osteoartritis right hip Disposition: 01 HOME, SELF-CARE Condition: Stable Departure-Patient Inst. Decision time for Depature: 10:26 Referrals: UBALDO WALLS DO (PCP/Family) Primary Care Physician Patient Instructions: Hip Pain ED Add. Discharge Instructions: Use over the counter Idocaine patches in the area of pain behind and below your right buttock. Please follow packaging instructions. You can take extra strength tylenol with your Mobic as needed for pain. Ice packs may also help the discomfort. If you have any worsening pain, weakness or other emergent concerns, please return to the Emergency Department for re-evaluation or follow up with your primary care provider. Copy Copies To 1: UBALDO WALLS KATHRYN M MD Apr 16, 2022 09:24
--- NOTE | 2022-04-16 10:11 | Diagnostic Imaging Report ---
PELVIS WITH RIGHT HIP 2-3VIEWS INDICATION: Right hip pain COMPARISON: None available. TECHNIQUE: AP pelvis with AP and lateral views of the hip. FINDINGS: Mild joint space narrowing of the superior aspect right hip. No features of avascular processes of either femoral head. No acetabular retroversion. No fracture or worrisome focal osseous lesion. SI joints are normal. IMPRESSION: Mild osteoarthritis of the right hip. Dictated by: Dictated on workstation # [id number]
[2022-04-16] MEDS ORDERED: LIDOCAINE 4% (SALONPAS) PATCH TOP STA (10:29)
[2022-04-16 11:04] VITALS: BP 136/71
== END 2022-04-16 11:04 | disposition home or self-care (01) ==
LOC: EDUNIT# 09:04 → ER 09:07
DX: M16.11 Unilateral primary osteoarthritis, right hip (principal)

== ENCOUNTER → 2023-01-07 | Outpatient (CLI) | payer MEDICARE, OTHER ==
[~2023-01-07] MED LIST changes: +NAC600 M1 PO; -POTA10CA44 PO; +POTA10CA84 PO; -[UNRECOGNIZED DRUG - CODE] PO
--- NOTE | 2023-01-07 12:55 | Diagnostic Imaging Report ---
INDICATION: Neck pain. COMPARISON: None. FINDINGS: Frontal, lateral, open-mouth, and oblique radiographic views of the cervical spine were obtained. Cervical spine is seen down to the C7-T1 level on the lateral view. Static alignment of the cervical spine is maintained. There is no significant saturnino or retrolisthesis. There is no evidence of jumped facets. Vertebral body heights are preserved. There is no acute fracture. There are moderate multilevel degenerative changes consistent with intervertebral disc height loss with multilevel uncovertebral hypertrophy. There is also multilevel facet arthropathy. Oblique images show multilevel neural foraminal stenosis. Included portions of the lung apices are clear. IMPRESSION: 1. Moderate multilevel degenerative changes of the cervical spine, but no acute fracture or dislocation. Dictated by: Dictated on workstation # [id number]
== END ==
LOC: RAD 10:47
PROVIDERS: ATTEND Nurse Practitioner Family
DX: M47.22 Other spondylosis with radiculopathy, cervical region (principal)
CPT/HCPCS: 72050